=== PATIENT | female | born 1990 | race Caucasian/White ===

== ENCOUNTER 2023-05-31 10:00 | Outpatient (OUT) | payer OTHER, SELFPAY ==
[2023-05-31 12:29] LABS: Free T4 1.12 ng/dL (0.76-1.46)
[2023-05-31 13:12] LABS: Thyroid Stimulating Hormone 6.519 uIU/mL (0.358-3.740)
== END 2023-05-31 10:01 | disposition home or self-care (01) ==
PROVIDERS: PCP Family Medicine; Visit Provider Family Medicine
DX: E03.9 Hypothyroidism, unspecified (principal)
CPT/HCPCS: 36415; 84439; 84443

== ENCOUNTER 2023-10-23 13:40 | Outpatient (OUT) | payer OTHER, SELFPAY ==
--- OUTSIDE RECORDS SUMMARY | 2023-10-23 13:54 | XMS_ITS | CCD ---
Author Organization [facility] Care Team Providers Care Capping Machine Operator Name Role Phone BEULAH YARBROUGH Attending Unavailable Xochilt Westfall Primary Care Unavailable Madiha Barreto Attending Unavailable Malou, Xochilt Coronel Primary Care Unavailable BEULAH YARBROUGH Attending Unavailable Malou, Xochilt Coronel Primary Care Unavailable Malou, Xochilt Coronel Primary Care Unavailable JAIME LOGAN Attending Unavailable Xochilt Westfall Consulting Unavailable SUAD CARPENTER Attending UnavailXOCHILT Bernstein Primary Care Un available BALDOMERO CHRISTIANULMALEK Admitting Unavailable PHUEHGera ABDULCELIAEK Attending Unavailable XOCHILT GARAY Primary Care Un available AGUSTINA GAN Consulting Unavailable ROBERT, DR FERNANDEZ Admitting Unavailable ALICIA, DR KITA Vidal Primary Care Unavailable ROBERT, DR FERNANDEZ Attending Unavailable ROBERT, DR FERNANDEZ Consulting Unavailable Ed Dow Consulting Unavailable ALICIA, DR KITA Vidal Admitting Unavailable VARGAS, DR KITA Vidal Attending Unavailable ALICIA, DR KITA Vidal Admitting Unavailable VARGAS, DR KITA Vidal Attending Unavailable VARGAS, DR KITA Vidal Consulting Unavailable ALICIA, DR KITA Vidal Primary Care Unavailable Kita Vargas Unavailable Allergies Allergy Classification Reported Allergen(s) Allergy Type Date of Onset Reaction(s) Facility Doxycycline (1 source) Doxycycline Drug Allergy [facility] [place] [facility] Opioid Agonists (1 source) Codeine Drug Allergy 06-19-19 [facility] Penicillins (antibiotic) (1 source) Amoxicillin Drug Allergy 03-28-20 [facility] (2 sources) Amoxicillin; Translations: [amoxicillin] Drug Allergy [facility] (2 sources) Codeine; Translations: [codeine] Drug Allergy [facility] (1 source) Codeine Drug Allergy Unknown NONO Other (1 source) Pseudoephedrine Drug Allergy 05-25-20 Unknown NONO Other (1 source) Allergies Reconciled Propensity to adverse reactions Unknown NONO Other Medications Current Medications Medication Drug Class(es) Dates Sig (Normalized) Sig (Original) [id number] actuat albuterol 0.09 mg/actuat metered dose inhaler (1 source) beta2-Adrenergic Agonist Start: 07-11-2023 take 2 puff(s) by inhalation every four hours as needed Albuterol Sulfate HFA 108 (90 Base) MCG/ACT 2 puff Inhalation every 4 hrs prn prefers Proair Jun, Active 120 actuat fluticasone propionate 0.11 mg/actuat metered dose inhaler (1 source) Corticosteroid take 2 puff(s) by inhalation twice daily Fluticasone Propionate HFA 110 MCG/ACT 2 puffs Inhalation Twice a day for 30 days Active levothyroxine sodium 0.175 mg oral tablet (2 sources) l-Thyroxine take 1 tablet by mouth once daily in the morning Levothyroxine Sodium 200 MCG 1 tablet in the morning on an empty stomach Orally Once a day for 30 days Active take 1 tablet by bernardo th once daily in the morning Levothyroxine Sodium 175 MCG take 1 tabl et by mouth every morning ON AN EMPTY STOMACH for 30 Active lisdexamfetamine dimesylate 30 mg oral capsule (1 source) Central Nervous System Stimulant Start: 07-11-2023 take 1 capsule by mouth every twenty-four hours Vyvanse 30 MG 1 capsule in the morning Orally Once a day for 30 days Jun, Active norethindrone 0.35 mg oral tablet (1 source) take 1 tablet by mouth every twenty-four hours Norethindrone 0.35 MG 1 tablet Orally Once a day Active Problems Active Problems Problem Classification Problem Date Documented Date Episodic/Chronic Asthma (2 sources) Exacerbation of moderate persistent asthma; Translations: [Moderate persistent asthma with (acute) exacerbation] Chronic Attention-deficit, conduct, and disruptive behavior disorders (1 source) Adult attention deficit hyperactivity disorder ; Translations: [Attention-deficit hyperactivity disorder, unspecified type] Chronic Attention-deficit, conduct, and disruptive behavior disorders (1 source) Attention-deficit hyperactivity disorder, unspecified type Chronic Disorders usually diagnosed in infancy, childhood, or adolescence (1 source) Behavioral and emotional disorder with onset in childhood; Translations: [Other specified behavioral and emotional disorders with onset usually occurring in childhood and adolescence] Chronic E Codes: Fall (1 source) Fall (on) (from) unspecified stairs and steps, initial encounter; Translations: [FALL ON FROM UNS STAIRS STEPS INIT] Onset: 11-12-2020 Episodic Immunizations and screening for infectious disease (1 source) Sexually transmitted infectious disease; Translations: [Encounter for screening for infections with a predominantly sexual mode of transmission] Episodic Menstrual disorders (1 source) Dysmenorrhea; Translations: [Dysmenorrhea, unspecified] Chronic Miscellaneous mental health disorders (2 sources) Binge eating disorder; Translations: [Binge eating disorder] Chronic Mood disorders (2 sources) Major depressive disorder, single episode, severe without psychotic features; Translations: [Major depressive disorder, single episode, severe without psychotic features] Onset: 09-29-2018 Chronic Mood disorders (1 source) Major depressive disorder, single episode, unspecified; Translations: [Major depressive disorder, single episode, unspecified] Onset: 09-28-2018 Other aftercare (1 source) Other continuous churn buttermaker (current) drug therapy; Translations: [OTH JAIL CURRENT DRUG THERAPY] Onset: 11-12-2020 Episodic Other circulatory disease (1 source) Elevated blood-pressure reading, without diagnosis of hypertension; Translations: [Elevated blood-pressure reading, without diagnosis of hypertension] Onset: 09-28-2018 Episodic Other complications of (3 sources) High risk ; Translations: [Supervision of high risk , unspecified, second trimester] Episodic Other complications of (1 source) Endocrine, nutritional and metabolic disease complicating , childbirth and puerperium; Translations: [Endocrine, nutritional and metabolic diseases complicating , first trimester] Episodic Other complications of (1 source) Endocrine, nutritional and metabolic diseases complicating , second trimester; Translations: [Endo, nutritional and metab diseases comp preg, second tri] Episodic Other complications of (1 source) Supervision of with other poor reproductive or obstetric history, first trimester; Translations: [Suprvsn of preg w poor reprodctv or obstet hx, first tri] Episodic Other complications of (1 source) Supervision of with history of ectopic , first trimester; Translations: [Suprvsn of preg w history of ect or molar preg, first tri] Episodic Other complications of (1 source) Supervision of high risk with poor obstetric history; Translations: [Supervision of with other poor reproductive or obstetric history, unspecified trimester] Episodic Other connective tissue disease (1 source) Spasm; Translations: [Other muscle spasm] Episodic Other female genital disorders (1 source) Other specified conditions associated with female genital organs and menstrual cycle; Translations: [Oth cond assoc w female genital organs and menstrual cycle] Episodic Other injuries and conditions due to external causes (3 sources) Unspecified injury of left ankle, initial encounter; Translations: [UNSPECIFIED INJURY LT ANKLE INITIAL] Onset: 11-10-2020 Episodic Other injuries and conditions due to external causes (1 source) History of fall; Translations: [History of falling] Episodic Other lower respiratory disease (1 source) Chronic cough; Translations: [Chronic cough] Episodic Other nutritional; endocrine; and metabolic disorders (1 source) Obese class I; Translations: [Body mass index (BMI) 34.0-34.9, adult] Chronic Other nutritional; endocrine; and metabolic disorders (1 source) Obese class II; Translations: [Body mass index (BMI) 37.0-37.9, adult] Chronic Other nutritional; endocrine; and metabolic disorders (1 source) Body mass index 40+ - severely obese; Translations: [Body mass index (BMI) 40.0-44.9, adult] Chronic Other nutritional; endocrine; and metabolic disorders (1 source) Localized adiposity; Translations: [Localized adiposity] Chronic Other nutritional; endocrine; and metabolic disorders (1 source) Overweight; Translations: [Overweight] Episodic Other and delivery including normal (2 sources) state of fetus, 1st trimester; Translations: [Encounter for supervision of normal , unspecified, first trimester] Episodic Other screening for suspected conditions (not mental disorders or infectious disease) (2 sources) Other specified abnormal findings of blood chemistry; Translations: [Urine test negative] Onset: 09-28-2018 Episodic Other upper respiratory disease (1 source) Nasal congestion; Translations: [Nasal congestion] Episodic Residual codes; unclassified (1 source) History of clinical finding in subject; Translations: [Personal history of other medical treatment] Episodic Residual codes; unclassified (1 source) Complication occurring during ; Translations: [Personal history of other complications of , childbirth and the puerperium] Episodic Sprains and strains (1 source) Sprain of unspecified ligament of left ankle, initial encounter; Translations: [SPRAIN UNS LIGAMENT LT ANKLE INIT] Onset: 11-12-2020 Episodic Suicide and intentional self-inflicted injury (1 source) Suicidal ideations; Translations: [Suicidal ideations] Onset: 09-28-2018 Episodic Superficial injury; contusion (1 source) Contusion of left foot, initial encounter; Translations: [CONTUSION LEFT FOOT INITIAL ENC] Onset: 11-12-2020 Episodic Thyroid disorders (8 sources) Hypothyroidism, unspecified; Translations: [Hypothyroidism] Onset: 05-06-2020 Chronic Past or Other Problems Problem Classification Problem Date Documented Date Episodic/Chronic Cardiac dysrhythmias (2 sources) Tachycardia; Translations: [Tachycardia, unspecified] Resolved: 09-20-2016 Episodic Hypertension complicating ; childbirth and the puerperium (1 source) Gestational [-induced] hypertension without significant proteinuria, second trimester; Translations: [Gestational [-induced] hypertension without significant proteinuria, second trimester] Resolved: 09-20-2016 Episodic Miscellaneous mental health disorders (1 source) depression; Translations: [ depression] Resolved: 06-23-2017 Episodic Other aftercare (1 source) Surgical follow-up; Translations: [Surgery follow-up examination] Onset: 01-15-2010 Episodic Other complications of (1 source) Endocrine, nutritional and metabolic diseases complicating , third trimester; Translations: [Endo, nutritional and metab diseases comp preg, third tri] Resolved: 09-20-2016 Episodic Residual codes; unclassified (1 source) History of uterine scar from previous surgery; Translations: [History of uterine scar from previous surgery] Resolved: 06-23-2017 Episodic Residual codes; unclassified (1 source) Postprocedural state finding; Translations: [Other specified postprocedural states] Resolved: 06-23-2017 Episodic Results Test Name Value Interpretation Reference Range Facility HCG,Urineon 09-16-2021 Beta HCG ( test) Ql (U) Negative Normal [facility] Comment on above: Result Comment: PERF ORMED BY: [place] [address] PATHOLOGIST CANE FLUME WATCHER JUAN GRAY M.D. Performed By: #### U HCG #### [facility] [address] [place] [address] [facility] SARS-CoV-2 (COVID-19) RNA ISMAEL+probe Ql (Unsp spec) Negative Normal Negative [facility] Comment on above: Order Comment: Healt hcare Worker?: N Result Comment: Testing for SARS-CoV-2 by RT-PCR This test was developed and its performance characteristics determined by [employer] and validated at the [facility]. This test has not been FDA cleared or approved. This test has been authorized by FDA under an Emergency Use Authorization (EUA). This test has been validated in accordance with the FDA's Guidance Document (Policy for Diagnostics Testing in Laboratories Certified to Perform High Complexity Testing under CLIA prior to Emergency Use Authorization for Coronavirus Disease-2019 during the Public Health Emergency) issued on September 19, 2019. This test is only authorized for the duration of time the declaration that circumstances exist justifying the authorization of the emergency use of in vitro diagnostic tests for detection of SARS-CoV-2 virus and/or diagnosis of COVID-19 infection under section 564(b)(1) of the Act, 21 U.S.C. 360bbb-3(b)(1), unless the authorization is terminated or revoked sooner. PERFORMED BY: [place] [address] PATHOLOGIST CANE FLUME WATCHER JUAN GRAY M.D. Performed By: #### C OVID 19 [facility] #### [place] [id number] [facility] XR ANKLE LT MIN 3 Von 2020 XR ANKLE LT MIN 3 V EXAM: XR ANKLE LT IL N 3 V, XR FOOT LT MIN 3 VIEWS HISTORY: Pain COMPARISON: None. TECHNIQUE: 3 views of the left foot, 3 views of the left ankle are performed. FINDINGS: There is soft tissue swelling along the lateral aspect of the ankle and along the dorsum of the foot. No acute fracture is seen. The ankle mortise is preserved. IMPRESSION: Soft tissue injury. No acute bony abnormality. Electronically authenticated by: ED DOW Date: 2020-11-10 22:50 Normal [facility] FREE T4on 05-06-2020 Free T4 [Mass/Vol] 1.70 ng/dL Normal 0.78-2.[address] [facility] Comment on above: Performed By: #### F T4 #### [facility] [address] [address] Zahira Caceres TSHon 05-06-2020 TSH 0.028 uIU/mL Critically low 0.470-4.680 [facility] Comment on above: Performed By: #### T SH #### [facility] [address] [place] [address] Zahira Nicki TSH RANGE SEE BELOW Normal [facility] Comment on above: Result Comment: <0.3 4 UIU/ml HYPERTHYROID 0.34-5.60 UIU/ml EUTHYROID >5.60 UIU/ml HYPOTHYROID Performed By: #### T SH #### [facility] [address] [address] Zahira Caceres CBC with Diffon 09-30-2018 Abs. Basophil 0.00 k/uL Normal 0.0-0.2 [facility] Comment on above: Performed By: #### C DP, FT4, LIPR, TSH #### [facility] [address] [place], [place] [id number] Chairman: Kojo Chiu MD Abs.Neutrophil (Seg) 2.90 k/uL Normal 1.3-9.1 [facility] Comment on above: Performed By: #### C DP, FT4, LIPR, TSH #### [facility] [address] [place], [place] [id number] Chairman: Kojo Chiu MD Basophils/100 WBC (Bld) 1 % Normal 0-2 [facility] Comment on above: Performed By: #### C DP, FT4, LIPR, TSH #### [facility] [address] [facility] [place] [address] Chairman: Kojo Chiu MD Eosinophils #/vol (Bld) 0.50 10*3/uL High 0.0-0.4 [facility] Comment on above: Performed By: #### C DP, FT4, LIPR, TSH #### [facility] [address] [facility] [place] [address] Chairman: Kojo Chiu MD Eosinophils/100 WBC (Bld) 8 % High 0-4 [facility] Comment on above: Performed By: #### C DP, FT4, LIPR, TSH #### [facility] [address] [facility] [place] [address] Chairman: Kojo Chiu MD Erythrocyte distribution width Ratio (RBC) 12.4 % Normal 11.5-14.9 [facility] Comment on above: Performed By: #### C DP, FT4, LIPR, TSH #### [facility] [place] [address] Chairman: Kojo Chiu MD Hematocrit Volume Fraction (Bld) 40.5 % Normal 36-46 [facility] Comment on above: Performed By: #### C DP, FT4, LIPR, TSH #### [facility] [place] [address] Chairman: Kojo Chiu MD Hemoglobin mass conc (Bld) 13.9 g/dL Normal 12.0-16.0 [facility] Comment on above: Performed By: #### C DP, FT4, LIPR, TSH #### [facility] [address] [facility] [place] [address] Chairman: Kojo Chiu MD Lymphocytes #/vol (Bld) 2.00 10*3/uL Normal 1.0-4.8 [facility] Comment on above: Performed By: #### C DP, FT4, LIPR, TSH #### [facility] [address] [facility] [place] [address] Chairman: Kojo Chiu MD Lymphocytes/100 WBC (Bld) 34 % Normal 24-44 [facility] Comment on above: Performed By: #### C DP, FT4, LIPR, TSH #### [facility] [address] [facility] [place] [address] Chairman: Kojo Chiu MD MCH Entitic mass (RBC) 30.8 pg Normal 26-34 [facility] Comment on above: Performed By: #### C DP, FT4, LIPR, TSH #### [facility] [address] [place] [address]. [place] [address] Chairman: Kojo Chiu MD MCHC mass conc (RBC) 34.2 g/dL Normal 31-37 [facility] Comment on above: Performed By: #### C DP, FT4, LIPR, TSH #### [facility] [place] [address] Chairman: Kojo Chiu MD MCV Entitic volume (RBC) 89.9 fL Normal 80-100 [facility] Comment on above: Performed By: #### C DP, FT4, LIPR, TSH #### [facility] [place] [address] Chairman: Kojo Chiu MD Monocytes #/vol (Bld) 0.40 10*3/uL Normal 0.1-1.3 [facility] Comment on above: Performed By: #### C DP, FT4, LIPR, TSH #### [facility] [place] [address] Chairman: Kojo Chiu MD Monocytes/100 WBC (Bld) 7 % Normal 1-7 [facility] Comment on above: Performed By: #### C DP, FT4, LIPR, TSH #### [facility] [address] [facility] [place] [address] Chairman: Kojo Chiu MD Neutrophil (Seg) 50 % Normal 36-66 [facility] Comment on above: Performed By: #### C DP, FT4, LIPR, TSH #### [facility] [address] [facility] [place] [address] Chairman: Kojo Chiu MD Platelet mean volume Entitic volume (Bld) 8.8 fL Normal 6.0-12.0 [facility] Comment on above: Performed By: #### C DP, FT4, LIPR, TSH #### [facility] [place] [address] Chairman: Kojo Chiu MD Platelets #/vol (Bld) 289 10*3/uL Normal 150-450 [facility] Comment on above: Performed By: #### C DP, FT4, LIPR, TSH #### [facility] [address] [facility] [place] [address] Chairman: Kojo Chiu MD RBC #/vol (Bld) 4.50 10*6/uL Normal 4.0-5.2 [facility] Comment on above: Performed By: #### C DP, FT4, LIPR, TSH #### [facility] [address] [facility] [place] [address] Chairman: Kojo Chiu MD WBC #/vol (Bld) 5.8 10*3/uL Normal 3.5-11.0 [facility] Comment on above: Performed By: #### C DP, FT4, LIPR, TSH #### [facility] [address] [facility] [place] [address] Chairman: Kojo Chiu MD Abs.Imm.Granulocyte NOT REPORTED Normal 0.00-0.30 [facility] Comment on above: Performed By: #### C DP, FT4, LIPR, TSH #### [facility] [address] [facility] [place] [address] Chairman: Kojo Chiu MD Auto Diff Performed NOT REPORTED Normal [facility] Comment on above: Performed By: #### C DP, FT4, LIPR, TSH #### [facility] [place] [address] Chairman: Kojo Chiu MD Immature granulocytes #/vol (Bld) NOT REPORTED Normal 0 [facility] Comment on above: Performed By: #### C DP, FT4, LIPR, TSH #### [facility] [address] [place] [address]. [place] [address] Chairman: Kojo Chiu MD NRBC Automated NOT REPORTED Normal [facility] Comment on above: Performed By: #### C DP, FT4, LIPR, TSH #### [facility] [place] [address] Chairman: Kojo Chiu MD Platelets #/vol (Bld) NOT REPORTED Normal [facility] Comment on above: Performed By: #### C DP, FT4, LIPR, TSH #### [facility] [address] [facility] [place] [address] Chairman: Kojo Chiu MD RBC morphology finding Nom (Bld) NOT REPORTED Normal [facility] Comment on above: Performed By: #### C DP, FT4, LIPR, TSH #### [facility] [address] [facility] [place] [address] Chairman: Kojo Chiu MD WBC Morphology NOT REPORTED Normal [facility] Comment on above: Performed By: #### C DP, FT4, LIPR, TSH #### [facility] [address] [facility] [place] [address] Chairman: Kojo Chiu MD Lipid Profileon 09-30-2018 Cholesterol in HDL mass conc 45 mg/dL Normal >40 [facility] Comment on above: Result Comment: HDL Guidelines: <40 Undesirable 40-59 Borderline >59 Desirable Performed By: #### C DP, FT4, LIPR, TSH #### [facility] [address] [facility] [place] [address] Chairman: Kojo Chiu MD Cholesterol in LDL mass conc 134 mg/dL High 0-130 [facility] Comment on above: Result Comment: LDL Guidelines: <100 Desirable 100-129 Near to/above Desirable 130-159 Borderline >159 Undesirable Direct (measured) LDL and calculated LDL are not interchangeable tests. Performed By: #### C DP, FT4, LIPR, TSH #### [facility] [address] [facility] [place] [address] Chairman: Kojo Chiu MD Cholesterol mass conc 205 mg/dL High <200 [facility] Comment on above: Result Comment: Cholesterol Guidelines: <200 Desirable 200-240 Borderline >240 Undesirable Performed By: #### C DP, FT4, LIPR, TSH #### [facility] [address] [facility] [place] [address] Chairman: Kojo Chiu MD Cholesterol.total/Ch olesterol in HDL mass ratio 4.6 {ratio} Normal <5 [facility] Comment on above: Performed By: #### C DP, FT4, LIPR, TSH #### [facility] [address] [facility] [place] [address] Chairman: Kojo Chiu MD Triglyceride mass conc 131 mg/dL Normal <150 [facility] Comment on above: Result Comment: Triglyceride Guidelines: <150 Desirable 150-199 Borderline 200-499 High >499 Very high Based on AHA Guidelines for fasting triglyceride, March 2012. Performed By: #### C DP, FT4, LIPR, TSH #### [facility] [address] [facility] [place] [address] Chairman: Kojo Chiu MD Cholesterol in VLDL mass conc NOT REPORTED Normal 07-18 [facility] Comment on above: Performed By: #### C DP, FT4, LIPR, TSH #### [facility] [address] [facility] [place] [address] Chairman: Kojo Chiu MD Thyroid Stim. Horm.on 2018 Thyrotropin Qn 0.04 m[IU]/L Low 0.30-5.00 [facility] Comment on above: Performed By: #### C DP, FT4, LIPR, TSH #### [facility] [address] [facility] [place] [address] Chairman: Kojo Chiu MD Thyroxine, Freeon 09-30-2018 Thyroxine, Free 1.74 ng/dL High 0.93-1.70 [facility] Comment on above: Performed By: #### C DP, FT4, LIPR, TSH #### [facility] [address] [facility] [place] [address] Chairman: Kojo Chiu MD XR ELBOW LEFT (MIN 3 VIEWS)o n 09-30-2018 XR ELBOW LEFT (MIN 3 VIEWS) EXAMINATION: 3 XRAY VIEWS OF THE LEFT ELBOW 09/30/2018 9:34 pm COMPARISON: None. HISTORY: ORDERING SYSTEM PROVIDED HISTORY: trauma to left elbow from fall TECHNOLOGIST PROVIDED HISTORY: trauma to left elbow from fall Ordering Physician Provided Reason for Exam: S/p fall pain posterior elbow Acuity: Acute Type of Exam: Initial Mechanism of Injury: S/p fall pain posterior elbow FINDINGS: There is no acute fracture or suspect osseous lesion. Alignment is normal. No soft tissue abnormality or joint effusion is seen. IMPRESSION: No acute osseous abnormality of the left elbow. Interpreted by: Lang Francis MD Signed by: Lang Francis MD 09/30/18 Final result Normal [facility] APTTon 09-29-2018 aPTT Coag time (Bld) 27.4 s Normal 23.2-34.4 [facility] Comment on above: Performed By: #### C DP, TROPI, PTT, CMPX, SALI, PT #### [facility] [address] [place] [address] Dr. [place], [place] [address] Chairman: Aryan Cleveland MD Acetaminophenon 09-29-2018 Acetaminophen mass conc <5 Low 10-30 [facility] Comment on above: Performed By: #### A LCB, ACET #### [address] [place], [place] [address] Chairman: Aryan Cleveland MD CBC with Diffon 09-29-2018 Abs. Basophil 0.09 k/uL Normal 0.00-0.20 [facility] Comment on above: Performed By: #### C DP, TROPI, PTT, CMPX, SALI, PT #### [address] [place], [place] [address] Chairman: Aryan Cleveland MD Abs.Imm.Granulocyte <0.03 Normal 0.00-0.30 [facility] Comment on above: Performed By: #### C DP, TROPI, PTT, CMPX, SALI, PT #### [address] [place], [place] [address] Chairman: Aryan Cleveland MD Abs.Neutrophil (Seg) 5.50 k/uL Normal 1.50-8.10 [facility] Comment on above: Performed By: #### C DP, TROPI, PTT, CMPX, SALI, PT #### [address] [place], [facility]83 Chairman: Aryan Cleveland MD Basophils/100 WBC (Bld) 1 % Normal 0-2 [facility] Comment on above: Performed By: #### C DP, TROPI, PTT, CMPX, SALI, PT #### [address] [place], [place] [id number] Chairman: Aryan Cleveland MD Eosinophils #/vol (Bld) 0.60 10*3/uL High 0.00-0.44 [facility] Comment on above: Performed By: #### C DP, TROPI, PTT, CMPX, SALI, PT #### [address] [place], [place] [address] Chairman: Aryan Cleveland MD Eosinophils/100 WBC (Bld) 6 % High 1-4 [facility] Comment on above: Performed By: #### C DP, TROPI, PTT, CMPX, SALI, PT #### [address] [place], [facility]83 Chairman: Aryan Cleveland MD Erythrocyte distribution width Ratio (RBC) 11.9 % Normal 11.8-14.4 [facility] Comment on above: Performed By: #### C DP, TROPI, PTT, CMPX, SALI, PT #### [address] [place], [facility]83 Chairman: Aryan Cleveland MD Hematocrit Volume Fraction (Bld) 38.6 % Normal 36.3-47.1 [facility] Comment on above: Performed By: #### C DP, TROPI, PTT, CMPX, SALI, PT #### [address] [place], [facility]83 Chairman: Aryan Cleveland MD Hemoglobin mass conc (Bld) 12.5 g/dL Normal 11.9-15.1 [facility] Comment on above: Performed By: #### C DP, TROPI, PTT, CMPX, SALI, PT #### [address] [place], [place] [id number] Chairman: Aryan Cleveland MD Immature granulocytes #/vol (Bld) 0 % Normal 0 [facility] Comment on above: Performed By: #### C DP, TROPI, PTT, CMPX, SALI, PT #### [facility] [address] [place], [place] [id number] Chairman: Aryan Cleveland MD Lymphocytes #/vol (Bld) 3.61 10*3/uL Normal 1.10-3.70 [facility] Comment on above: Performed By: #### C DP, TROPI, PTT, CMPX, SALI, PT #### [facility] [address] [place] [address] Chairman: Aryan Cleveland MD Lymphocytes/100 WBC (Bld) 34 % Normal 24-43 [facility] Comment on above: Performed By: #### C DP, TROPI, PTT, CMPX, SALI, PT #### [address] [place], [place] [address] Chairman: Aryan Cleveland MD MCH Entitic mass (RBC) 29.7 pg Normal 25.2-33.5 [facility] Comment on above: Performed By: #### C DP, TROPI, PTT, CMPX, SALI, PT #### [facility] [address] [place], [place] [id number] Chairman: Aryan Cleveland MD MCHC mass conc (RBC) 32.4 g/dL Normal 28.4-34.8 [facility] Comment on above: Performed By: #### C DP, TROPI, PTT, CMPX, SALI, PT #### [facility] [address] [place], [place] [id number] Chairman: Aryan Cleveland MD MCV Entitic volume (RBC) 91.7 fL Normal 82.6-102.9 [facility] Comment on above: Performed By: #### C DP, TROPI, PTT, CMPX, SALI, PT #### [facility] [address] [place], [place] [id number] Chairman: Aryan Cleveland MD Monocytes #/vol (Bld) 0.85 10*3/uL Normal 0.10-1.20 [facility] Comment on above: Performed By: #### C DP, TROPI, PTT, CMPX, SALI, PT #### [facility] [address] [place], [place] [phone] Chairman: Aryan Cleveland MD Monocytes/100 WBC (Bld) 8 % Normal 3-12 [facility] Comment on above: Performed By: #### C DP, TROPI, PTT, CMPX, SALI, PT #### [facility] [address] [place], [facility]83 Chairman: Aryan Cleveland MD Neutrophil (Seg) 51 % Normal 36-65 [facility] Comment on above: Performed By: #### C DP, TROPI, PTT, CMPX, SALI, PT #### [facility] [address] [place], [facility]83 Chairman: Aryan Cleveland MD NRBC Automated 0.0 per 100 WBC Normal 0.0 [facility] Comment on above: Performed By: #### C DP, TROPI, PTT, CMPX, SALI, PT #### [address] [place], [place] [id number] Chairman: Aryan Cleveland MD Platelet mean volume Entitic volume (Bld) 10.6 fL Normal 8.1-13.5 [facility] Comment on above: Performed By: #### C DP, TROPI, PTT, CMPX, SALI, PT #### [facility] [address] [place], [place] [id number] Chairman: Aryan Cleveland MD Platelets #/vol (Bld) 314 10*3/uL Normal 138-453 [facility] Comment on above: Performed By: #### C DP, TROPI, PTT, CMPX, SALI, PT #### [address] [place] [address] Chairman: Aryan Cleveland MD RBC #/vol (Bld) 4.21 10*6/uL Normal 3.95-5.11 [facility] Comment on above: Performed By: #### C DP, TROPI, PTT, CMPX, SALI, PT #### [address] [place] [address] Chairman: Aryan Cleveland MD WBC #/vol (Bld) 10.7 10*3/uL Normal 3.5-11.3 [facility] Comment on above: Performed By: #### C DP, TROPI, PTT, CMPX, SALI, PT #### [address] [place], [facility]83 Chairman: Aryan Cleveland MD Auto Diff Performed NOT REPORTED Normal [facility] Comment on above: Performed By: #### C DP, TROPI, PTT, CMPX, SALI, PT #### [address] [place], [facility]83 Chairman: Aryan Cleveland MD Platelets #/vol (Bld) NOT REPORTED Normal [facility] Comment on above: Performed By: #### C DP, TROPI, PTT, CMPX, SALI, PT #### [address] [place], [facility]83 Chairman: Aryan Cleveland MD RBC morphology finding Nom (Bld) NOT REPORTED Normal [facility] Comment on above: Performed By: #### C DP, TROPI, PTT, CMPX, SALI, PT #### [address] [place], [facility]83 Chairman: Aryan Cleveland MD WBC Morphology NOT REPORTED Normal [facility] Comment on above: Performed By: #### C DP, TROPI, PTT, CMPX, SALI, PT #### [address] [place], [place] [id number] Chairman: Aryan Cleveland MD Comp Metabolic Pr/rfx MGon 0 09-29-2018 (cont.) Normal [facility] Comment on above: Result Comment: Aver age GFR for 20-29 years old: 116 mL/min/1.73sq m Chronic Kidney Disease: <60 mL/min/1.73sq m Kidney failure: <15 mL/min/1.73sq m eGFR calculated using average adult body mass. Additional eGFR calculator available at: http://www.NOBOT/multiple_crcl_2012.htm Performed By: #### C DP, TROPI, PTT, CMPX, SALI, PT #### [facility] [address] [place] [address] Chairman: Aryan Cleveland MD Albumin mass conc 3.7 g/dL Normal 3.5-5.2 [facility] Comment on above: Performed By: #### C DP, TROPI, PTT, CMPX, SALI, PT #### [facility] [address] [place] [address] Chairman: Aryan Cleveland MD Albumin/Globulin mass ratio 1.1 {ratio} Normal 1.0-2.5 [facility] Comment on above: Performed By: #### C DP, TROPI, PTT, CMPX, SALI, PT #### [address] [place] [address] Chairman: Aryan Cleveland MD Alkaline Phos 57 U/L Normal 35-104 [facility] Comment on above: Performed By: #### C DP, TROPI, PTT, CMPX, SALI, PT #### [facility] [address] [place] [address] Chairman: Aryan Cleveland MD ALT enzyme act/vol 22 U/L Normal 5-33 [facility] Comment on above: Performed By: #### C DP, TROPI, PTT, CMPX, SALI, PT #### [facility] [address] [place] [id number] Chairman: Aryan Cleveland MD Anion gap molar conc 12 mmol/L Normal 9-17 [facility] Comment on above: Performed By: #### C DP, TROPI, PTT, CMPX, SALI, PT #### [facility] [address] [place], [place] [id number] Chairman: Aryan Cleveland MD AST enzyme act/vol 12 U/L Normal <32 [facility] Comment on above: Performed By: #### C DP, TROPI, PTT, CMPX, SALI, PT #### [facility] [address] [place], [place] [phone] Chairman: Aryan Cleveland MD Bilirubin Ql (U) 0.36 mg/dL Normal 0.3-1.2 [facility] Comment on above: Performed By: #### C DP, TROPI, PTT, CMPX, SALI, PT #### [facility] [address] [place], [place] [phone] Chairman: Aryan Cleveland MD BUN/CRE Ratio 11 Normal 9-20 [facility] Comment on above: Performed By: #### C DP, TROPI, PTT, CMPX, SALI, PT #### [facility] [address] [place], [place] [id number] Chairman: Aryan Cleveland MD Calcium mass conc 9.0 mg/dL Normal 8.6-10.4 [facility] Comment on above: Performed By: #### C DP, TROPI, PTT, CMPX, SALI, PT #### [facility] [address] [place], [place] [phone] Chairman: Aryan Cleveland MD Chloride molar conc 102 mmol/L Normal 98-107 [facility] Comment on above: Performed By: #### C DP, TROPI, PTT, CMPX, SALI, PT #### [facility] [address] [place], [place] [id number] Chairman: Aryan Cleveland MD CO2 molar conc 25 mmol/L Normal 20-31 [facility] Comment on above: Performed By: #### C DP, TROPI, PTT, CMPX, SALI, PT #### [facility] [address] [place], [place] [phone] Chairman: Aryan Cleveland MD Creatinine mass conc 0.74 mg/dL Normal 0.50-0.90 [facility] Comment on above: Performed By: #### C DP, TROPI, PTT, CMPX, SALI, PT #### [facility] [address] [place], [place] [phone] Chairman: Aryan Cleveland MD GFR, Amer >60 Normal >60 [facility] Comment on above: Performed By: #### C DP, TROPI, PTT, CMPX, SALI, PT #### [facility] [address] [place], [place] [id number] Chairman: Aryan Cleveland MD GFR,non Amer >60 Normal >60 [facility] Comment on above: Performed By: #### C DP, TROPI, PTT, CMPX, SALI, PT #### [facility] [address] [place], [place] [id number] Chairman: Aryan Cleveland MD Glucose mass conc 87 mg/dL Normal 70-99 [facility] Comment on above: Performed By: #### C DP, TROPI, PTT, CMPX, SALI, PT #### [facility] [address] [place], [place] [phone] Chairman: Aryan Cleveland MD Potassium molar conc 3.7 mmol/L Normal 3.7-5.3 [facility] Comment on above: Performed By: #### C DP, TROPI, PTT, CMPX, SALI, PT #### [facility] [address] [place], [place] [phone] Chairman: Aryan Cleveland MD Protein mass conc 7.0 g/dL Normal 6.4-8.3 [facility] Comment on above: Performed By: #### C DP, TROPI, PTT, CMPX, SALI, PT #### [facility] [address] [place] [address] Chairman: Aryan Cleveland MD Sodium molar conc 139 mmol/L Normal 135-144 [facility] Comment on above: Performed By: #### C DP, TROPI, PTT, CMPX, SALI, PT #### [facility] [address] [place], [place] [phone] Chairman: Aryan Cleveland MD Staging: Normal [facility] Comment on above: Result Comment: Stag e 1: Some kidney damage normal GFR Stage 2: Mild kidney damage GFR 60-89 Stage 3: Moderate kidney damage GFR 30-59 Stage 4: Severe kidney damage GFR 15-29 Stage 5: Severe kidney damage GFR <15 ESRD - chronic treatment by dialysis or transplant Performed By: #### C DP, TROPI, PTT, CMPX, SALI, PT #### [address] [place], [place] [phone] Chairman: Aryan Cleveland MD Urea nitrogen mass conc 8 mg/dL Normal 6-20 [facility] Comment on above: Performed By: #### C DP, TROPI, PTT, CMPX, SALI, PT #### [address] [place] [address] Chairman: Aryan Cleveland MD Drug Scr, Abuse, Uron 2018 Amphetamine(s),Ur Negative Normal NEG [facility] Comment on above: Performed By: #### C DP, TROPI, PTT, CMPX, SALI, PT #### [facility] [address] [place] [address] Chairman: Aryan Cleveland MD Barbiturate(s),Ur Negative Normal NEG [facility] Comment on above: Performed By: #### C DP, TROPI, PTT, CMPX, SALI, PT #### [facility] [address] [place], [place] [phone] Chairman: rAyan Cleveland MD Base excess Calculated molar conc (Bld) Negative Normal [facility] Comment on above: Performed By: #### C DP, TROPI, PTT, CMPX, SALI, PT #### [facility] [address] [place] [address] Chairman: Aryan Cleveland MD Benzodiazepine(s) Positive Abnormal NEG [facility] Comment on above: Performed By: #### C DP, TROPI, PTT, CMPX, SALI, PT #### [address] [place], [place] [phone] Chairman: Aryan Cleveland MD Buprenorphrine, Ur Negative Normal [facility] Comment on above: Performed By: #### C DP, TROPI, PTT, CMPX, SALI, PT #### [facility] [address] [place] [address] Dr. [place], [place] [phone] Chairman: Aryan Cleveland MD Cannabinoid(s),Ur Positive Abnormal NEG [facility] Comment on above: Performed By: #### C DP, TROPI, PTT, CMPX, SALI, PT #### [address] [place], [place] [phone] Chairman: Aryan Cleveland MD Methadone Ql (U) Negative Normal NEG [facility] Comment on above: Performed By: #### C DP, TROPI, PTT, CMPX, SALI, PT #### [facility] [address] [place] [address] Dr. [place], [place] [phone] Chairman: Aryan Cleveland MD Methamphetamine, Ur Negative Normal [facility] Comment on above: Performed By: #### C DP, TROPI, PTT, CMPX, SALI, PT #### [address] [place], [place] [phone] Chairman: Aryan Cleveland MD Opiate(s), Ur Negative Normal NEG [facility] Comment on above: Performed By: #### C DP, TROPI, PTT, CMPX, SALI, PT #### [facility] [address] [place], [place] [phone] Chairman: Aryan Cleveland MD Oxycodone, Urine Negative Normal NEG [facility] Comment on above: Performed By: #### C DP, TROPI, PTT, CMPX, SALI, PT #### [facility] [address] [place] [address] Dr. [place], [place] [phone] Chairman: Aryan Cleveland MD Phencyclidine, Ur Negative Normal NEG [facility] Comment on above: Performed By: #### C DP, TROPI, PTT, CMPX, SALI, PT #### [address] [place], [place] [phone] Chairman: Aryan Cleveland MD Protein mass conc (U) Negative [facility] Comment on above: Performed By: #### C DP, TROPI, PTT, CMPX, SALI, PT #### [address] [place], [place] [id number] Chairman: Aryan Cleveland MD Tricyclic antidepressants Screen Ql (U) Negative [facility] Comment on above: Result Comment: Drug screen results are to be used for medical purposes only. All positive results are unconfirmed. Testing for employment or legal uses should be sent to a reference laboratory for confirmation. Performed By: #### C DP, TROPI, PTT, CMPX, SALI, PT #### [facility] [address] [place] [address] Dr. [place], [place] [phone] Chairman: Aryan Cleveland MD Interpretive Info NOT REPORTED [facility] Comment on above: Performed By: #### C DP, TROPI, PTT, CMPX, SALI, PT #### [address] [place] [address] Chairman: Aryan Cleveland MD MDMA, Urine NOT REPORTED Normal NEG [facility] Comment on above: Performed By: #### C DP, TROPI, PTT, CMPX, SALI, PT #### [facility] [address] [place], [place] [phone] Chairman: Aryan Cleveland MD Ethanol Alcoholon 09-29-2018 Ethanol mass conc mg/dL Normal <10 [facility] Comment on above: Performed By: #### A LCB, ACET #### [facility] [address] [place], [place] [phone] Chairman: Aryan Cleveland MD Ethanol percent <0.010 Normal <0.010 [facility] Comment on above: Result Comment: NOTE : NEW REFERENCE RANGE Performed By: #### A LCB, ACET #### [address] [place], [place] [phone] Chairman: Aryan Cleveland MD HCG, ,Urineon 09-29 HCG.beta subunit ( test) Ql (U) Negative Normal NEG [facility] Comment on above: Result Comment: Spec imens with hCG levels near the threshold of the test (25 mIU/mL) may give a negative or indeterminate result. In such cases, another test should be performed with a new specimen in 48-72 hours. If early is suspected clinically in this setting, correlation with quantitative serum b-hCG level is suggested. [facility] has confirmed the use of plasma for this test. This has not been cleared or approved by the U.S. Food and Drug Administration. The FDA has determined that such clearance is not necessary. Performed By: #### U A, RIVAS, UHCG #### [facility] [address] [place] [address] Chairman: Aryan Cleveland MD PTon 09-29-2018 INR Coag RelTime (PPP) 1.0 {INR} Normal 0.9-1.2 [facility] Comment on above: Performed By: #### C DP, TROPI, PTT, CMPX, SALI, PT #### [facility] [address] [place], [place] [phone] Chairman: Aryan Cleveland MD Prothrombin time (PT) Coag time (PPP) 10.5 s Normal 9.7-12.2 [facility] Comment on above: Performed By: #### C DP, TROPI, PTT, CMPX, SALI, PT #### [facility] [address] [place], [facility]83 Chairman: Aryan Cleveland MD Salicylateon 09-29-2018 Salicylate <1 Low 3-10 [facility] Comment on above: Performed By: #### C DP, TROPI, PTT, CMPX, SALI, PT #### [facility] [address] [place], [facility]83 Chairman: Aryan Cleveland MD Thyroid Stim. Horm.on 2018 Thyrotropin Qn 0.04 m[IU]/L Low 0.30-5.00 [facility] Comment on above: Performed By: #### T SH #### [facility] [address] [facility]83 Chairman: Aryan Cleveland MD Troponinon 09-29-2018 Troponin I.cardiac mass conc ng/mL Normal <0.03 [facility] Comment on above: Result Comment: Trop onin T results cannot be compared to Troponin-I results. Performed By: #### C DP, TROPI, PTT, CMPX, SALI, PT #### [facility] [address] [place], [facility]83 Chairman: Aryan Cleveland MD Troponin I.cardiac mass conc Normal [facility] Comment on above: Result Comment: Refe rence Range: <0.03 Within reference range. 0.03-0.09 Possible myocardial damage. Repeat at appropriate intervals to rule out chronic elevation. >= 0.10 Indicative of myocardial damage. Patients with high levels of Biotin oral intake (i.e >5mg/day) may have falsely decreased Troponin T levels. Samples collected within 8 hours of biotin intake may require additional information for diagnosis. Performed By: #### C DP, TROPI, PTT, CMPX, SALI, PT #### [facility] [address] [place], [place] [phone] Chairman: Aryan Cleveland MD Troponin I.cardiac mass conc NOT REPORTED Normal 0-14 [facility] Comment on above: Performed By: #### C DP, TROPI, PTT, CMPX, SALI, PT #### [facility] [address] [place] [address] Chairman: Aryan Cleveland MD Urinalysis, Routineon 2018 Acetoacetic Acid,Ur Negative Normal [facility] Comment on above: Performed By: #### C DP, TROPI, PTT, CMPX, SALI, PT #### [address] [place] [address] Chairman: Aryan Cleveland MD Bilirubin, SemiQt,Ur Negative Normal [facility] Comment on above: Performed By: #### C DP, TROPI, PTT, CMPX, SALI, PT #### [address] [place] [address] Chairman: Aryan Cleveland MD Color Nom (U) YELLOW Normal [facility] Comment on above: Performed By: #### C DP, TROPI, PTT, CMPX, SALI, PT #### [address] [place], [place] [phone] Chairman: Aryan Cleveland MD Glucose,Semi-qnt,Ur Negative Normal [facility] Comment on above: Performed By: #### C DP, TROPI, PTT, CMPX, SALI, PT #### [address] [place], [place] [phone] Chairman: Aryan Cleveland MD Hemoglobin, Ur Negative Normal [facility] Comment on above: Performed By: #### C DP, TROPI, PTT, CMPX, SALI, PT #### [facility] [address] [place] [address] Chairman: Aryan Cleveland MD Leuckocyte Esterase Negative Normal NEG [facility] Comment on above: Performed By: #### C DP, TROPI, PTT, CMPX, SALI, PT #### [facility] [address] [place] [address] Chairman: Aryan Cleveland MD Nitrite,Ur Negative Normal NEG [facility] Comment on above: Performed By: #### C DP, TROPI, PTT, CMPX, SALI, PT #### [facility] [address] [place], [place] [phone] Chairman: Aryan Cleveland MD PH,Ur 6.5 Normal 5.0-9.0 [facility] Comment on above: Performed By: #### C DP, TROPI, PTT, CMPX, SALI, PT #### [address] [place] [address] Chairman: Aryan Cleveland MD Protein mass conc (U) Negative Normal NEG [facility] Comment on above: Performed By: #### C DP, TROPI, PTT, CMPX, SALI, PT #### [address] [place] [address] Chairman: Aryan Cleveland MD Spec. Lillian,Ur 1.010 Normal 1.010-1.020 [facility] Comment on above: Performed By: #### C DP, TROPI, PTT, CMPX, SALI, PT #### [address] [place], [place] [phone] Chairman: Aryan Cleveland MD Turbidity CLEAR Normal CLEAR [facility] Comment on above: Performed By: #### C DP, TROPI, PTT, CMPX, SALI, PT #### [address] [place], [facility]83 Chairman: Aryan Cleveland MD Urobilinogen,Ur Normal Normal NORM [facility] Comment on above: Performed By: #### C DP, TROPI, PTT, CMPX, SALI, PT #### [facility] [address] [place], [place] [phone] Chairman: Aryan Cleveland MD Comment NOT REPORTED Normal [facility] Comment on above: Performed By: #### C DP, TROPI, PTT, CMPX, SALI, PT #### [facility] [address] [place], [place] [id number] Chairman: Aryan Cleveland MD ED Clinical Summaryon 2018 ED Clinical Summary [address] [address] ED Clinical Summary Person Information Name: Lana Carrillo [facility] Age: 28 Years : 1990 Sex: Female PCP: Malou MCBRIDE, Xochilt Coronel Marital Status: Race: White Ethnicity: Not or Language: [place] Citizen Visit Reason: Ear pain; Ear drainage Acuity: 5 Enc Type: Emergency Med Service: Emergency Medicine Arrival: 09/10/2018 18:52:00 Discharge: 09/10/2018 19:20:00 LOS: 000 00:28 Checkin: 09/10/2018 18:52:00 Checkout: 09/10/2018 19:20:00 Dispo Type: Home or Self Care Address: [address] [place], [place] [id number] Provider Notes: Diagnosis: 1:Right otitis media; 2:Right otitis externa Problems No Problems Documented Smoking Status: Smoking Status Never (less than 100 in lifetime) Functional Status: Sensory Deficits: History of Falls: Mobility Assistance Prior to Admission: ADLs: Current Level of Assistance for Self-Care/Mobility: Cognitive Status: Allergies amoxicillin (Swelling) codeine (Swelling) Laboratory or Other Results This Visit (last charted value for your 09/10/2018 visit) No Laboratory or Other Results This Visit Measurements: Height: Weight: 90.7 kg Blood Pressure: /81 mmHg BMI: Procedures No Procedures Documented Immunizations No Immunizations Documented This Visit Final Med List: New Medications [facility], [address] [place] [id number], [phone] ciprofloxacin-dexameth asone otic (Ciprodex 0.3%-0.1% otic suspension) 4 Drops Both ears 2 times a day for 7 Days. right ear, not both. Refills: 0. Last Dose: ___ doxycycline (doxycycline hyclate 100 mg oral capsule) 1 Capsules Oral (given by mouth) 2 times a day for 10 Days. Refills: 0. Last Dose: ___ Medications that have not changed Other Medications celecoxib (CeleBREX 200 mg oral capsule) 1 Capsules Oral (given by mouth) every day as needed as needed for pain for 10 Days. Refills: 0. Last Dose: ___ levothyroxine (levothyroxine 200 mcg (0.2 mg) oral tablet) 1 Tabs Oral (given by mouth) every day. Last Dose: ___ norethindrone-ethinyl estradiol (07/08 oral tablet) 1 Tabs Oral (given by mouth) every day. Last Dose: ___ [facility], [facility] [place], [place] [id number], [phone] ciprofloxacin-dexameth asone otic (Ciprodex 0.3%-0.1% otic suspension) 4 Drops Both ears 2 times a day for 7 Days. right ear, not both. Refills: 0. doxycycline (doxycycline hyclate 100 mg oral capsule) 1 Capsules Oral (given by mouth) 2 times a day for 10 Days. Refills: 0. Other Medications celecoxib (CeleBREX 200 mg oral capsule) 1 Capsules Oral (given by mouth) every day as needed as needed for pain for 10 Days. Refills: 0. levothyroxine (levothyroxine 200 mcg (0.2 mg) oral tablet) 1 Tabs Oral (given by mouth) every day. norethindrone-ethinyl estradiol (Junel Fe 07/08 oral tablet) 1 Tabs Oral (given by mouth) every day. Care Team Members: Attending Physician: Jaime Logan PA-C Consulting Physician: Referring Physician: Provider Role Assigned Unassigned Jaime Logan PA-C ED MidLevel 09/10/2018 18:55:38 Jahaira Titus ED Nurse 09/10/2018 18:57:29 09/10/2018 18:57:34 Lainey Servin ED Nurse 09/10/2018 18:57:36 Jahaira Titus ED Nurse 09/10/2018 18:57:40 Follow up: With: Address: When: Emergency Room , only if needed Comments: Return for any worsening symptoms, difficulty breathing/swallowing, inability to tolerate fluids, persistent fever or other concerns With: Address: When: Xochilt Malou [address] [place] [address], [address] [place] [phone] Business (1) Discharge Orders: Discharge Patient 09/10/18 19:12:00 EDT, Discharge to Home, Self Patient Education Information: EXTERNAL EAR INFECTION (Adult); OTITIS MEDIA, Abx Tx (Adult) [facility] Poison Help line: . [facility] Hotline: [place] Tobacco Quit Line: [place], [place]) [address]: [phone] [place], [place]) [address]: [phone] [facility] [address] [place], [place]: [phone] [facility] ED Note-Physicianon 09-11-19 19 ED Note-Physician Chief Complaint Right ear pain, bloody drainage, started a week ago. History of Present Illness Patient presents to ED c/o right ear pain and drainage x 1 week. She also reports runny nose, cough and intermittent fever. Patient denies difficulty breathing/swallowing, vomiting. Symptoms are aggravated by laying flat, pressure and alleviated by nothing. Patient has had similar symptoms multiple times in the past and has seen ENT. She has not taken any medication prior to arrival. Review of Systems General: [Negative for fever, chills, weakness, malaise] Eyes: [Negative for injury, redness, pain, discharge] ENT: [Positive for right ear pain, drainage, rhinorrhea. Negative for sinus pain, sore throat, difficulty swallowing, difficulty handling secretions, hoarseness] Neck: [Negative for injury, pain, swelling, stiffness] Cardiovascular: [Negative for chest pain, palpitations, edema] Respiratory: [Positive for cough. Negative for shortness of breath, wheezing, pleuritic chest pain, hemoptysis] Abdomen/GI: [Negative for abdominal pain, nausea, vomiting, diarrhea] Skin: [Negative for injury, rash, discoloration] All other systems reviewed are negative and normal Physical Exam General: [Alert, awake, no apparent distress, afebrile, well hydrated] Eyes: [PERRL, extraocular movements intact, clear conjunctiva] Head: [Normocephalic, atraumatic] ENT: [External ear normal, right ear canal w/erythema and mild swelling, left ear canal w/out redness, swelling, no discharge bilaterally. Right tympanic membrane is erythematous, left is translucent without erythema. Patent nares w/out rhinorrhea. No tonsillar enlargement, erythema, or exudate. Uvula midline and airway is patent] Neck: [Non-tender, supple, no nuchal rigidity, full range of motion, no swelling, no lymphadenopathy] Cardiovascular: [Regular rate and rhythm, no appreciated murmurs, normal S1 and S2, strong radial pulses w/intact distal perfusion] Respiratory: [Lungs clear to auscultation w/out wheezes, rhonchi, or rales, normal excursion, no accessory muscle use, no stridor] Skin: [Mccormick, warm, dry, no injury, no rashes] Neuro: [Alert and oriented x 3, GCS 15, Normal mentation and speech. Moves all extremities w/out motor or sensory deficit, gait is steady] Psych: [Normal mood and affect, thought process is clear and linear] Vitals & Measurements T: 36.3 ?C (Oral) RR: 18 BP: 120/81 SpO2: 92% HT: 165.1 cm DOSE WT: 90.7 kg Additional Vitals Peripheral Pulse Rate: 81 bpm Medical Decision Making Differential Diagnosis: otitis media, otitis externa, otalgia The results of pertinent diagnostic studies and exam findings were discussed. The patient?s provisional diagnosis and plan of care were discussed with the patient and present family. The patient and/or present family expressed understanding of the diagnosis and plan. The nurse was instructed to provide written instructions and appropriate follow-up information. The patient understands their need and responsibility to obtain additional follow-up as instructed. The risks of medications administered and prescribed were discussed with the patient and family present. Assessment/Plan Patient w/otitis media and otitis externa on exam. Vitals are stable. Will d/c home w/Rx for Doxycycline and Cipro drops and have her follow up w/PCP for recheck. Advised her to return for any worsening symptoms, difficulty breathing/swallowing, inability to tolerate fluids, persistent fever or other concerns. 1. Right otitis media 2. Right otitis externa Orders: ciprofloxacin-dexameth asone otic, 4 drops, Ear-Both, BID, right ear, not both, X 7 days, # 7.5 mL, 0 Refill(s), 09/17/18 19:10:00 EDT, Pharmacy: [facility] doxycycline, 100 mg, Oral, Tab, Once, First Dose: 09/10/18 19:08:00 EDT, Stop Date: 09/10/18 19:08:00 EDT, STAT, Dispense From Location: [facility], Otitis media doxycycline, 1 caps, Oral, BID, X 10 days, # 20 caps, 0 Refill(s), 09/20/18 19:10:00 EDT, Pharmacy: [facility]. Discharge Patient Problem List/Past Medical History Ongoing Hypothyroid Historical No qualifying data Procedure/Surgical History section Medications Home 07/08 oral tablet, 1 tabs, Oral, Daily levothyroxine 200 mcg (0.2 mg) oral tablet, 200 mcg, 1 tabs, Oral, Daily Inpatient doxycycline, 100 mg, Oral, Once Prescriptions CeleBREX 200 mg oral capsule, 200 mg, 1 caps, Oral, Daily, PRN Ciprodex 0.3%-0.1% otic suspension, 4 drops, Ear-Both, BID doxycycline hyclate 100 mg oral capsule, 100 mg, 1 caps, Oral, BID Allergies amoxicillin (Swelling) codeine (Swelling) Social History Alcohol Never Tobacco Never (less than 100 in lifetime) Use:. Family History Patient was adopted Diagnostic Results XRay No qualifying data available. Computerized Tomagraphy No qualifying data available. Ultrasound No qualifying data available. Magnetic Resonance Imaging No qualifying data available. Electronically signed by Jaime Logan PA-C 09/10/18 19:54 EDT [facility] Ambulatory Patient Education on 07-25-2018 Ambulatory Patient Education Patient Education Materials Name: Lana Carrillo Current Date: 07/25/2018 15:33:58 [facility] : 1990 The following sheet(s) are the Patient Education Leaflets for Lana Carrillo Ambulatory TMJ Syndrome The temporomandibular joint (TMJ) is the joint that connects your lower jaw to your head. You can feel it in front of your ears when you open and close your mouth. TMJ disorders involve chronic or recurrent pain in the joint. When treated, symptoms of TMJ disorders usually go away within a few months. Causes There is no widely agreed-on cause of TMJ disorders. They have been linked to injury, arthritis, chronic fatigue syndrome, and fibromyalgia. A definite connection has not been shown, though. Symptoms ? Pain in the face, jaw, or neck ? Pain with jaw movement or chewing ? Locking or catching sensation of the jaw ? Clicking, popping, or grinding sounds with movement of the TMJ ? Headache ? Ear pain Home care Modest, nonsurgical treatments are a good first step toward relieving symptoms. Try the approaches described below. ? Rest the jaw by avoiding crunchy or htni-cy-yqom foods. Don't eat hard or sticky candies. Soft foods and liquids are easier on the jaw. ? Protect your jaw while yawning. If you need to yawn, put your fist under your chin to prevent your mouth from opening up too wide. ? To help relieve pain, try applying hot or cold packs to the painful area. Try both hot and cold to find out which works best for you. To make a cold pack, put ice cubes in a plastic bag that seals at the top. Wrap the bag in a clean, thin towel or cloth. Never put ice or an ice pack directly on the skin. If you use hot packs (small towels soaked in hot water), be careful not to burn yourself. ? You may take acetaminophen or ibuprofen for pain, unless you were given a different pain medicine. (Note: If you have chronic liver or kidney disease or have ever had a stomach ulcer or gastrointestinal bleeding, talk with your healthcare provider before using these medicines. Also talk to your provider if you are taking medicine to prevent blood clots.) Don't give aspirin to a child younger than age 19 unless directed by the child's provider. Taking aspirin can put a child at risk for Davon syndrome. This is a rare but very serious disorder that most often affects the brain and the liver. Reducing stress If stress seems to be contributing to your symptoms, try to identify the sources of stress in your life. These aren't always obvious. Common stressors include: ? Everyday hassles. These include things such as traffic jams, missed appointments, or car trouble. ? Major life changes. These can be good, such as a new baby or job promotion. And they can be bad, such as losing a job or losing a loved one. ? Overload. The feeling that you have too many responsibilities and can't take care of everything at once. ? Helplessness. Feeling like your problems are more than you can solve. When possible, do something about your sources of stress. See if you can avoid hassles, limit the amount of change in your life at one time, and take breaks when you feel overloaded. Unfortunately, many stressful situations cannot be avoided. So learning how to manage stress better is very important. Getting regular exercise, eating nutritious, balanced meals, and getting adequate rest all help to make everyday stress more manageable. Certain techniques are also helpful: relaxation and breathing exercises, visualization, biofeedback, meditation, or simply taking some time out to clear your mind. For more information, talk with your healthcare provider. Follow-up care Follow up with your healthcare provider, or as advised. Further testing and additional treatment may be required. If changes to your lifestyle do not improve your symptoms, talk with your healthcare provider about other available therapies. These include bite guards for help with teeth grinding, stress management techniques, and more. If stress is an important factor and does not respond to the above simple measures, talk with your healthcare provider about a referral for stress management. If X-rays were done, they will be reviewed by a specialist. You will be notified of the results, especially if they affect treatment. Call 911 Call 911 if any of these occur: ? Trouble breathing or swallowing, wheezing ? Confusion ? Extreme drowsiness or trouble awakening ? Fainting or loss of consciousness ? Rapid heart rate When to seek medical advice Call your healthcare provider right away if any of these occur: ? Swollen or red face ? Pain gets worse ? Neck, mouth, tooth, or throat pain gets worse ? Fever of 100.4?F (38?C) or higher, or as directed by your healthcare provider ? [id number] [employer]. [address] [place] [address]. All rights reserved. This information is not intended as a substitute for professional medical care. Always follow your healthcare professional's instructions. [facility] Otol[facility]ology Office/Clinic Noteon 07-25-2018 Otolaryngology Office/Clinic Note Chief Complaint Patient states My family physician thinks I needs tubes in my ears. On antibiotic now for a right ear infection. Still having ear pain and itching History of Present Illness This 28-year-old woman comes here today complaining of a 5 day history of severe right ear pain. There is no significant hearing loss or drainage associated with this. She is concerned there is an acute infection. 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 Review of Systems General Cardiovascular EENMT Ear pain: Yes Facial pain: Yes Hearing loss: Yes Hoarseness: Yes Nasal congestion: Yes Nosebleeds: No Other EENMT: Yes Sore_throat: Yes Tinnitus: Yes Gastrointestinal Dysphagia: No Genitourinary Hematologic/Lymphatic Musculoskeletal Neurological Psychiatric Respiratory Cough: Yes Sputum production: No Skin Physical Exam Vitals & Measurements BP: 139/80 General: [Alert and oriented, well nourished, no acute distress]. Eye: [PERRL, EOMI, normal conjunctiva]. HENT: [Normocephalic Ears: Both canals are clear the tympanic membranes are healthy with normal landmarks and aerated middle ear space. Luis localizes midline with equal hearing at 128 Hz Neck: [Supple, severe pain to minimal palpation of right TMJ with and without jaw motion. no lymphadenopathy]. Skin: [Skin is warm, dry and pink, no rashes or lesions]. Neurologic: [Awake, alert, and oriented X3, CN II-XII intact]. Psychiatric: [Cooperative, appropriate mood and affect]. Additional Vitals BP Position/Location: Sitting, Right arm Peripheral Pulse Rate: 75 bpm Assessment/Plan 1. Referred otalgia of right ear Ordered: hydrocodone-acetaminop hen, 1 tabs, Oral, q4hr, PRN, X 5 days, # 16 tabs, 0 Refill(s), 07/30/18 15:27:00 EST 2. TMJ arthralgia Plan: I'm giving the patient [place]. She apparently had some itching with the codeine. I've advised her that if it causes itching or irritation to stop it. I'm prescribing it because her pain is so severe she is having trouble sleeping. I'm also giving her a prescription for Celebrex and have urged her to follow up with her dentist to ensure that there is no dental problem though her teeth to percussion was no discomfort on the right. Problem List/Past Medical History Ongoing Hypothyroid Historical No qualifying data Procedure/Surgical History section Medications CeleBREX 200 mg oral capsule, 200 mg, 1 caps, Oral, Daily, PRN 07/08 oral tablet, 1 tabs, Oral, Daily levothyroxine 200 mcg (0.2 mg) oral tablet, 200 mcg, 1 tabs, Oral, Daily [place] 5 mg-325 mg oral tablet, 1 tabs, Oral, q4hr, PRN Allergies amoxicillin (Swelling) codeine (Swelling) Social History Alcohol Never Tobacco Never (less than 100 in lifetime) Use:. Family History Patient was adopted Diagnostic Results No qualifying data available. No qualifying data available. No qualifying data available. No qualifying data available. Electronically signed by Beulah Yarbrough MD 07/25/18 15:30 EST [facility] Otolaryngology Consultationo n 03-16-2018 Otolaryngology Consultation Chief Complaint Patient states I have been having problems with ear infections for over two years History of Present Illness This is a very pleasant 27-year-old mother of 2 who for the last couple years has had episodes of recurrent external otitis. More recently the infections have been worse in the left ear with the ear swelling shot completely. Her last infection was about 1 month ago. She feels the hearing in her left ear is still reduced though that presently there is no pain or drainage. She denies history of ear problems when she was younger been swimming excessively. Review of Systems General Adult ROS Fatigue: No Appetite change: No Weight gain: No Weight Loss: No Cardiovascular Chest pain/pressure: No Palpitations: No EENMT Ear pain: Yes Hearing loss: Yes Nasal congestion: No Nasal discharge: No Tinnitus: Yes Gastrointestinal Dysphagia: No Heartburn: No Genitourinary Decreased urine output: No Frequency: No Hematologic/Lymphatic Bleeding tendencies: No Bruising: No Musculoskeletal Back pain: Yes Joint pain: Yes Joint stiffness: No Neurological Headache: No Memory problems: No Psychiatric Anxiety: Yes Depression: Yes Suicidal Ideation: No Respiratory Cough: No Shortness_of_breath: No Wheezing: No Skin Itching: Yes Lesion/change in moles: No Rash: No Physical Exam Vitals & Measurements BP: 125/83 WT: 100 kg General: [Alert and oriented, well nourished, no acute distress]. Eye: [PERRL, EOMI, normal conjunctiva]. HENT: [Normocephalic Ears: Ear canals are clear with minimal amount of cerumen. Her tympanic membranes are both healthy with normal landmarks and an aerated middle ear space. Nose: Marketed septal deformity to left with reduced airway. No intranasal purulence or stasis. Oral cavity: healthy moist mucosa with good dental repair. Oropharynx unremarkable with 1-2+ tonsils Neck: [Supple, mild stylohyoid muscle pain with TMJ pain worse to palpation left with jaw movement, no lymphadenopathy]. Lungs: [Clear to auscultation and percussion, non-labored respiration]. Heart: [Normal rate, regular rhythm, no murmur, gallop or edema]. Skin: [Skin is warm, dry and pink, no rashes or lesions]. Neurologic: [Awake, alert, and oriented X3, CN II-XII intact]. Psychiatric: [Cooperative, appropriate mood and affect]. Additional Vitals Body Mass Index Measured: 36.29 kg/m2 BP Position/Location: Sitting, Left arm Peripheral Pulse Rate: 88 bpm Assessment/Plan 1. Asymmetrical hearing loss of left ear 2. TMJ arthralgia 3. Sensorineural hearing loss (SNHL), bilateral Audiogram: Patient has a bilateral 30 dB hearing loss upsloping to 20 DB in the high frequencies. Speech discrimination is 100% right and 88% left Recommendation: I will obtain an ABR to rule out any central cause of the asymmetric loss with discrimination. I'm also giving the patient a TMJ handout and I've discussed the precautions there within. Problem List/Past Medical History Ongoing Hypothyroid Historical No qualifying data Procedure/Surgical History section. Medications Home 07/08 oral tablet, 1 tabs, Oral, Daily levothyroxine 200 mcg (0.2 mg) oral tablet, 200 mcg, 1 tabs, Oral, Daily Inpatient No active inpatient medications Prescriptions No active Prescriptions Allergies amoxicillin (Swelling) codeine (Swelling) Social History Alcohol Never Tobacco Never smoker Family History Patient was adopted Lab Results Microbiology No qualifying data available. Electronically signed by Beulah Yarbrough MD 03/16/18 10:20 EDT Electronically signed by Beulah Yarbrough MD 03/27/2018 14:04 EDT [facility] Vital Signs Date Time Vital Sign Value Performing Clinician Facility 07-11-2023 11:45-0500 Body height 165.1 cm Kita Vargas Other [facility] Other 07-11-2023 11:45-0500 Body mass index (BMI) [Ratio] 39.93 kg/m2 Kita Vargas Other [facility] Other 07-11-2023 11:45-0500 Body weight 108.86 kg Kita Vargas Other [facility] Other 07-11-2023 11:45-0500 Diastolic blood pressure 82 mm[Hg] Kita Vargas Other [facility] Other 07-11-2023 11:45-0500 Systolic blood pressure 128 mm[Hg] Kita Varg[facility] Other [facility] Other Encounters Encounter Date Encounter Type Care Provider Facility Start: 07-11-2023 End: 07-11-2023 ambulatory Kita Vargas Other [facility] Other Start: 07-11-2023 Office outpatient vi sit 15 minutes Kita Vargas [facility] Start: 08-06-2021 Gynecological examination normal Kita Vargas Other [facility] Other Start: 11-10-2020 End: 11-11-[address] REBECCA OJNES Facility:[facility] Start: 05-06-2020 End: 05-07-[address] KITA VARGAS Facility:[facility] Start: 04-25-[address] KITA VARGAS Facil ity:[facility] Start: 09-29-2018 End: 10-05-2018 Evaluation and management of inpatient [facility] Start: 09-28-2018 End: 09-29-2018 Emergency department patient visit [facility] Start: 09-10-2018 End: 09-10-2018 Emergency department patient visit Xochilt Westfall Facility:[facility] Start: 07-25-2018 End: 07-26-2018 Patient encounter procedure BEULAH YARBROUGH Facility:[facility] Start: 04-09-2018 Patient encounter procedure Madiha Barreto Facility:[facility] Start: 03-16-2018 End: 03-17-2018 Patient encounter procedure BEULAH YARBROUGH Facility:[facility] Procedures Date Procedure Procedure Detail Performing Clinician Start: 10-04-2018 DISCHARGE PATIENT DIMA CHRISTIAN Start: 09-30-2018 Radex elbow complete minimum 3 views [facility] Start: 09-30-2018 Assay of free [facility]roxine [facility] Start: 09-30-2018 Assay of thyroid stimulating hormone tsh [facility] Start: 09-30-2018 Blood count complete auto&auto difrntl wbc [facility] Start: 09-30-2018 Lipid panel [facility] Start: 09-29-2018 IP CONSULT TO SUBSTATION OPERATOR AL MEDICINE [facility] Start: 09-29-2018 DIET [facility]AL [facility] Start: 09-29-2018 FULL CODE [facility] Start: 09-29-2018 IP CONSULT TO HOSPITALIST BALDOMEROALTA [facility] Start: 09-29-2018 MONITOR [facility] Start: 09-29-2018 PATIENT STATUS (DIRECT) [facility] Start: 09-29-2018 TOBACCO CESSATION EDUCATION [facility] Start: 09-29-2018 VITAL SIGNS [facility] Start: 09-29-2018 Drug screen class list a [facility] Start: 09-29-2018 Urine test visual color cmprsn meths [facility] Start: 09-29-2018 Urnls dip stick/tabl et rgnt auto w/o microscopy [facility] VARLAS Start: 09-29-2018 SUICIDE PRECAUTIONS SILVA TELHS VARLAS Start: 09-29-2018 Ecg routine ecg w/le ast 12 lds w/i&r PANTELHS VARLAS Start: 09-29-2018 Assay of acetaminophen PANTELHS VARLAS Start: 09-29-2018 Assay of ethanol PANTEL HS VARLAS Start: 09-29-2018 Assay of salicylate SILVA TELHS VARLAS Start: 09-29-2018 Assay of thyroid stimulating hormone tsh PANTELHS VARLAS Start: 09-29-2018 Assay of troponin quantitative PANTELHS VARLAS Start: 09-29-2018 Blood count complete auto&auto difrntl wbc PANTELHS VARLAS Start: 09-29-2018 Prothrombin time PANTEL HS VARLAS Start: 09-29-2018 Thromboplastin time partial plasma/whole blood PANTELHS VARLAS screening Kitadelicia cisneros Other screening Kita cisneros Other Contraception care education Kita Alicia Other Depression screening Kita Alicia Other Diabetes mellitus screening Kita Alicia Other visit Kita Alicia Other Payers Date Payer Category Payer Private Health Insurance [id number] 2014 Unknown [id number] 1999 Private Health Insurance 1990 Unknown [id number] 2.16.8 [id number] 1990 Unknown [id number] 2.16.8 [id number] 1990 Unknown [id number] 2.16.8 [id number] 1990 Unknown [id number] 2.16.8 [id number] 1990 Unknown [id number] 2.16.8 [id number] 1990 Unknown [id number] 2.16.8 [id number] 1990 Unknown [id number] 2.16.84 [id number] 1990 Unknown [id number] 2.16.84 [id number] 1990 Unknown [id number] 2.16.84 [id number] 1959 Self-pay [id number] 1959 Unknown [id number] Medicaid [id number] 2. [id number] Social History Date Type Detail Facility Sex Assigned At [facility] Other Evaluation note 07-11-2023 Note Date & Type Note Facility 07-11-2023 Evaluation note Encounter Date Diagnosis Assessment Notes Jun, Hypothyroidism, unspecified (ICD-10 - E03.9) Due for labs in 2-3 months. Will increase dose based on the lab results and her present fatigue Jun, Binge eating disorder (ICD-10 - F50.81) start [facility] [facility]. Jun, Moderate persistent asthma with acute exacerbation (ICD-10 - J45.41) proair and flovent sent in. wheezes each night. Jun, Adult ADHD (ICD-10 - F90.9) [facility] Other History general Narrative - Reported Note Date & Type Note Facility History general Narrative - Reported Type Medical History Problem Title : EXPO SURE TO NON-STD INFECTION: The patient has not been exposed to AIDS, HIV, hepatitis, TB, influenza, MMR, DPT, polio or tetanus. There have been no recent rashes or viral illnesses, Problem Status : Inactive,, Medical History Problem Title : FIRS T TRIMESTER BLEED, Problem Status : Inactive, Attribute Title : Patient Risk Factors,, Medical History Problem Title : GEST ATIONAL DIABETES, Problem Status : Inactive, Attribute Title : Patient Risk Factors,, Medical History Problem Title : H/O EARLY MISCARRIAGE, Problem Status : Inactive, Attribute Title : Patient Risk Factors,, Medical History Problem Title : HYPO THYROIDISM, Problem Status : Inactive, Attribute Title : Patient Risk Factors,, Medical History Problem Title : MEDI GRABIEL: Hypothyroidism, Problem Status : Inactive,, Medical History Problem Title : Prob lems Reconciled, Problem Status : Active,, Medical History Problem Title : SECO ND TRIMESTER BLEEDING, Problem Status : Inactive, Attribute Title : Patient Risk Factors,, Medical History Problem Title : She has not had a rash or viral illness since her last menstrual period, Problem Status : Active,, Medical History Problem Title : The patient has not been exposed to AIDS, HIV, hepatitis, TB, influenza, MMR, DPT, polio or tetanus. There have been no recent rashes or viral illnesses, Problem Status : Active,, Medical History Problem Title : The patient has not been exposed to non-STD infections, Problem Status : Active,, Medical History Problem Title : MICHELLE SFUSION HISTORY: No history of receiving blood or blood product transfusion(s), Problem Status : Inactive,, Medical History Problem Title : Unsp ecified Diagnosis, Problem Status : Inactive,, Surgical History Problem Title : Cesa rean Section - 1, Problem Status : Active, Attribute Title : [Insert Date into Details], Surgical History Problem Title : Cesa rean Section - 2, Problem Status : Active, Surgical History curtis gtz 2020 [facility]O Other Summary Purpose Family History No Family History Records FoundNo Family History Records FoundNo Family History Records FoundNo Family History Records FoundNo Family History Records Found Advance Directives No Advanced Directives Records FoundNo Advanced Directives Records FoundNo Advanced Directives Records FoundNo Advanced Directives Records FoundNo Advanced Directives Records Found Additional Source Comments INFORMATION SOURCE (unrecogn ized section and content) DATE CREATED AUTHOR 09/12/2018 [facility] DATE CREATED AUTHOR AUTHOR'S ORGANIZ ATION 09/30/2018 [facility] DATE CREATED AUTHOR AUTHOR'S ORGANIZ ATION 10/05/2018 [facility] DATE CREATED AUTHOR AUTHOR'S ORGANIZ ATION 11/14/2020 [facility] DATE CREATED AUTHOR AUTHOR'S ORGANIZ ATION 09/23/2021 [facility] REASON FOR VISIT (unrecogniz ed section and content) Diet Pill/ Inhaler Discussio n FOR RECORDS PERTAINING TO PATIENTS WHO ARE OR HAVE BEEN ENROLLED IN A CHEMICAL DEPENDENCY/SUBSTANCEABUSE PROGRAM, SOME INFORMATION MAY BE OMITTED. This clinical summary was aggregated from multiple sources. Caution should be exercised in using it in the provision of clinical care. This summary normalizes information from multiple sources, and as a consequence, information in this document may materially change the coding, format and clinical context of patient data. In addition, data may be omitted in some cases. CLINICAL DECISIONS SHOULD BE BASED ON THE PRIMARY CLINICAL RECORDS. [facility]. provides no warranty or guarantee of the accuracy or completeness of information in this document.
[2023-10-23 15:20] LABS: Free T4 1.67 ng/dL (0.76-1.46)
[2023-10-23 15:26] LABS: Thyroid Stimulating Hormone 0.045 uIU/mL (0.358-3.740)
== END 2023-10-23 13:41 | disposition home or self-care (01) ==
LOC: LAB 13:42
PROVIDERS: PCP Family Medicine; Visit Provider Family Medicine
DX: E03.9 Hypothyroidism, unspecified (principal)
CPT/HCPCS: 36415; 84439; 84443

== ENCOUNTER 2024-05-25 09:17 | Emergency (ER) | payer OTHER, SELFPAY ==
[2024-05-25 09:23] VITALS: BP 146/85; PULSE 88; TEMP 36.8; O2SAT 96; BMI 41.6
--- NOTE | 2024-05-25 09:37 | ED.GENADUL1 ---
HPI HPI - General Adult General Chief complaint: Urogenital-Female Stated complaint: lower back pain Time Seen by Provider: 05/25/24 09:18 Source: patient Mode of arrival: walk-in History of Present Illness HPI narrative: 33-year-old female presents for 2 issues. First she is complaining of right flank pain which comes and goes and it started yesterday. There is no precipitating injury or unusual activity. Movement does not seem to make it worse. She is never had a kidney stone and has had no hematuria or dysuria. Second she has had a cough and has been coughing up green phlegm. She quit smoking about a month ago. Related Data Home Medications ?Medication ?Instructions ?Recorded ?Confirmed drospirenone 3 mg-ethinyl 1 tab PO DAILY 05/25/24 05/25/24 estradiol 0.02 mg tablet levothyroxine 175 mcg tablet 175 mcg PO DAILY 05/25/24 05/25/24 Previous Rx's ?Medication ?Instructions ?Recorded albuterol sulfate 90 mcg/actuation 2 inh inhalation Q4H PRN shortness 05/25/24 aerosol inhaler of breath or wheezing #8.5 grams azithromycin 250 mg tablet See Rx Instructions PO .COMPLEX #6 05/25/24 (Zithromax Z-Charanjit) tabs benzonatate 100 mg capsule 100 mg PO TID PRN cough #20 caps 05/25/24 ibuprofen 800 mg tablet 800 mg PO Q8H PRN pain #20 tabs 05/25/24 methocarbamol 500 mg tablet 500 mg PO Q8H PRN pain #20 tabs 05/25/24 Allergies Allergy/AdvReac Type Severity Reaction Status Date / Time Penicillins AdvReac Diarrhea Verified 05/25/24 09:23 Opioid HPI Opioid Management Most Recent Opioid Data: No Data to Display Review of Systems ROS Narrative A ten point review of systems is negative except as noted above. PFSH PFSH Social History Little interest or pleasure in doing things: not at all Feeling down, depressed, or hopeless: not at all Exam Narrative Exam Narrative: Nurses note and vital signs reviewed and patient is not hypoxic. General: The patient appears in no apparent distress. Skin: Warm, dry, no pallor noted. There is no rash noted. Head: Normocephalic, atraumatic Eye: Normal conjunctiva, no drainage Ears, Nose, Mouth, and Throat: oral mucosa is moist. Nares patent. Cardiovascular: Regular Rate and Rhythm Respiratory: Bilateral rhonchi throughout Back: non-tender, no CVA tenderness bilaterally to percussion. No bruise or rash on her back GI: Soft and nontender Musculoskeletal: The patient has no evidence of calf tenderness, no pitting edema, symmetrical pulses noted bilaterally Neurological: A&O, normal speech Psychiatric: Cooperative Constitutional Vital Signs, click to edit/add: Last Vital Signs Temp 98.3 F 05/25/24 09:23 Pulse 88 05/25/24 09:23 Resp 18 05/25/24 09:23 BP 146/85 H 05/25/24 09:23 Pulse Ox 96 05/25/24 09:23 O2 Del Method Room Air 05/25/24 09:23 Course Vital Signs Vital signs: Vital Signs Temperature 98.3 F 05/25/24 09:23 Pulse Rate 88 05/25/24 09:23 Respiratory Rate 18 05/25/24 09:23 Blood Pressure 146/85 H 05/25/24 09:23 Pulse Oximetry 96 05/25/24 09:23 Oxygen Delivery Method Room Air 05/25/24 09:23 Temperature 98.3 F 05/25/24 09:23 Pulse Rate 88 05/25/24 09:23 Respiratory Rate 18 05/25/24 09:23 Blood Pressure 146/85 H 05/25/24 09:23 Pulse Oximetry 96 05/25/24 09:23 Oxygen Delivery Method Room Air 05/25/24 09:23 Medical Decision Making MDM Narrative Medical decision making narrative: Scan shows punctate stone in the right kidney but no cause for her symptoms. Urinalysis and test are negative as well. She has been coughing a great deal and I suspect she may have pulled a muscle in her flank area. She is being treated for an upper respiratory infection as well. Treatment diagnosis and follow-up were discussed with the patient. Differential Diagnosis Differential Diagnosis: Kidney stone, UTI, muscle strain Lab Data Lab results reviewed: Yes I reviewed the patient's lab results Labs: Lab Results 05/25/24 Range/Units 09:30 Urine Color Lt. yellow (YELLOW) Urine Clarity Clear (CLEAR) Urine pH 6.5 (5.0-9.0) Ur Specific [place] 1.020 (1.005-1.025) Urine Protein Negative (NEG/TRACE) mg/dL Urine Glucose (UA) Negative (NEGATIVE) mg/dL Urine Ketones Negative (NEGATIVE) mg/dL Urine Occult Blood Negative (NEGATIVE) Urine Nitrite Negative (NEGATIVE) Urine Bilirubin Negative (NEGATIVE) Urine Urobilinogen 0.2 (0.2-1.0) EU/dL Ur Leukocyte Esterase Negative (NEGATIVE) Urine RBC None seen (0-2) #/HPF Urine WBC 0-2 A (NONE SEEN) #/HPF Ur Squamous Epith Cells Rare (NONE/RARE) #/LPF Urine Crystals None seen (None Seen) #/HPF Urine Bacteria Trace A (NONE SEEN) #/HPF Urine Casts None seen (NONE SEEN) #/LPF Urine Mucus None seen (NONE SEEN) Urine HCG, Qual Negative (NEGATIVE) Imaging Data CT scan - abdomen: Radiologist's impression: ITS Impressions Abdomen CT 05/25/24 09:54 IMPRESSION: 1. No obstructive uropathy or other acute process. 2. Punctate right nephrolithiasis. Electronically authenticated by: PROMISE GODWIN Date: 05/25/2024 10:59 Discharge Plan Discharge Chief Complaint: Urogenital-Female Clinical Impression: Flank pain, Upper respiratory infection Patient Disposition: Home, Self-Care Time of Disposition Decision: 11:07 Condition: Good Mode of Transportation: Private Vehicle Prescriptions / Home Meds: New methocarbamol 500 mg tablet 500 mg PO Q8H PRN (Reason: pain) Qty: 20 0RF azithromycin [Zithromax Z-Charanjit] 250 mg tablet See Rx Instructions .ROUTE .COMPLEX Qty: 6 0RF Rx Instructions: For 250 mg dose pack: take 500 mg today (day 1), then 250 mg for 4 days (days 2-5) ibuprofen 800 mg tablet 800 mg PO Q8H PRN (Reason: pain) Qty: 20 0RF benzonatate 100 mg capsule 100 mg PO TID PRN (Reason: cough) Qty: 20 0RF albuterol sulfate 90 mcg/actuation HFA aerosol inhaler 2 inh inhalation Q4H PRN (Reason: shortness of breath or wheezing) Qty: 8.5 0RF No Action levothyroxine 175 mcg tablet 175 mcg PO DAILY drospirenone-ethinyl estradiol 3-0.02 mg tablet 1 tab PO DAILY Print Language: Korean Instructions: Upper Respiratory Infection (ED), Flank Pain (ED) Referrals: Kita Hobbs MD [Primary Care Provider] - 1 week
[2024-05-25 09:41] LABS: Bilirubin Urine NEGATIVE (NEGATIVE); Blood Urine NEGATIVE (NEGATIVE); Clarity Urine CLEAR (CLEAR); Color Urine LT. YELLOW (YELLOW); Glucose Urine UA NEGATIVE (NEGATIVE); Ketones Urine NEGATIVE (NEGATIVE); Leukocyte Esterase Urine NEGATIVE (NEGATIVE); Nitrite Urine NEGATIVE (NEGATIVE); Protein Urine NEGATIVE (NEG/TRACE); Urobilinogen Urine 0.2 EU/dL (0.2-1.0); pH Urine 6.5 (5.0-9.0)
[2024-05-25 09:44] LABS: HCG Qualitative Urine* NEGATIVE (NEGATIVE); Internal Control Within Normal Limits
--- NOTE | 2024-05-25 09:54 | CT_ITS ---
The [address] [address] Patient Name: EDWINA ROJAS MRN: [id number] date: 1990 Sex: F Assigned Patient Location: ER Current Patient Location: ER Accession/Order Number: [id number] Exam Date: 05/25/2024 10:15 Report Date: 05/25/2024 10:59 At the request of: MADAI JEFFERS Procedure: CT abdomen wo con EXAMINATION: CT abdomen wo con INDICATION: Right flank pain, rule out stone. COMPARISON: None. TECHNIQUE: Multiple contiguous axial CT images of the abdomen were obtained without the use of intravenous contrast. Sagittal and coronal reconstructions were performed. Dose reduction techniques were achieved by using: automated exposure control and/or adjustment of mA and /or kV according to patient size and/or use of iterative reconstruction technique. FINDINGS: Evaluation of visceral organs limited by noncontrast technique. LOWER CHEST: No significant abnormality. ABDOMEN AND PELVIS: LIVER: Unremarkable. BILIARY SYSTEM: Normal gallbladder. No biliary ductal dilatation. PANCREAS: Unremarkable. SPLEEN: Tiny calcified granulomas. ADRENAL GLANDS: Normal. URINARY SYSTEM: Punctate nonobstructing 1-2 mm right renal stone. No hydronephrosis or urolithiasis. Unremarkable bladder. REPRODUCTIVE: GASTROINTESTINAL TRACT: Normal caliber bowel. No bowel wall thickening or inflammation. Normal appendix. VESSELS: Nonaneurysmal abdominal aorta. LYMPH NODES: No adenopathy. PERITONEUM: No ascites or pneumoperitoneum. MUSCULOSKELETAL: SOFT TISSUES: Unremarkable soft tissues. BONES: No acute osseous abnormality or suspicious osseous lesion. MILLER: (series:image) CT/CT abdomen wo con IMPRESSION: 1. No obstructive uropathy or other acute process. 2. Punctate right nephrolithiasis. Electronically authenticated by: PROMISE GODWIN Date: 05/25/2024 10:59
[2024-05-25 10:00] LABS: Bacteria Urine TRACE #/HPF (NONE SEEN); Cast Seen? NONE SEEN #/LPF (NONE SEEN); Crystals Seen? None Seen #/HPF (None Seen); Mucus Urine NONE SEEN (NONE SEEN); RBC Urine NONE SEEN #/HPF (0-2); Squamous Epithelial Cell Urine RARE #/LPF (NONE/RARE); WBC Urine 0-2 #/HPF (NONE SEEN)
== END 2024-05-25 11:19 | disposition home or self-care (01) ==
PROVIDERS: Emergency Provider Emergency Medicine; PCP Family Medicine
DX: J06.9 Acute upper respiratory infection, unspecified (principal); R10.30 Lower abdominal pain, unspecified; Z87.891 Personal history of nicotine dependence
CPT/HCPCS: 74150; 81001; 84703; 99284

== ENCOUNTER 2024-08-05 16:44 | Outpatient (OUT) | payer OTHER, SELFPAY ==
--- OUTSIDE RECORDS SUMMARY | 2024-08-05 16:58 | XMS_ITS | CCD ---
Author Organization [facility] Care Team Providers Care Group Art Supervisor Name Role Phone BEULAH YARBROUGH Attending Unavailable Xochilt Westfall Primary Care Unavailable Madiha Barreto Attending Unavailable Malou, Xochilt Coronel Primary Care Unavailable BEULAH YARBROUGH Attending Unavailable Malou, Xochilt Coronel Primary Care Unavailable Malou, Xochilt Coronel Primary Care Unavailable JAIME LOGAN Attending Unavailable Xochilt Westfall Consulting Unavailable SUAD CARPENTER Attending UnavailXOCHILT Bernstein Primary Care Un available BALDOMERO CHRISTIANULMALEK Admitting Unavailable GINO ABDULCELIAEK Attending Unavailable XOCHILT GARAY Primary Care Un available AGUSTINA GAN Consulting Unavailable ROBERT, DR FERNANDEZ Admitting Unavailable ALICIA, DR KITA Vidal Primary Care Unavailable ROBERT, DR FERNANDEZ Attending Unavailable ROBERT, DR FERNANDEZ Consulting Unavailable Ed Dow Consulting Unavailable ALICIA, DR KITA Vidal Admitting Unavailable ALICIA, DR KITA Vidal Attending Unavailable ALICIA, DR KITA Vidal Admitting Unavailable ALICIA, DR KITA Vidal Attending Unavailable ALICIA, DR KITA Vidal Consulting Unavailable ALICIA, DR KITA Vidal Primary Care Unavailable Kita Vargas Unavailable Allergies Allergy Classification Reported Allergen(s) Allergy Type Date of Onset Reaction(s) Facility Doxycycline (1 source) Doxycycline Drug Allergy [facility] Opioid Agonists (1 source) Codeine Drug Allergy 06-19-19 [facility] Penicillins (antibiotic) (1 source) Amoxicillin Drug Allergy 03-28-20 13 [facility] (2 sources) Amoxicillin; Translations: [amoxicillin] Drug Allergy [facility] Repository (2 sources) Codeine; Translations: [codeine] Drug Allergy [facility] Repository (1 source) Codeine Drug Allergy Unknown [facility] Other (1 source) Pseudoephedrine Drug Allergy 05-25-20 Unknown [facility] Other (1 source) Allergies Reconciled Propensity to adverse reactions Unknown [facility] Other Medications Current Medications Medication Drug Class(es) Dates Sig (Normalized) Sig (Original) [id number] actuat albuterol 0.09 mg/actuat metered dose [...] Onset: 09-28-2018 Other aftercare (1 source) Other senior living (current) drug therapy; Translations: [OTH RETIREMENT CURRENT DRUG THERAPY] Onset: 11-12-2020 Episodic Other [...] HCG ( test) Ql (U) Negative Normal [facility] Comment on above: Result Comment: PERF ORMED BY: [address] [place] [address] PATHOLOGIST RECREATIONAL SPORTS DIRECTOR JUAN GRAY M.D. Performed By: #### U HCG #### [facility] [address] [place] [address] COVID-19 FRMCon 09-14-2021 SARS-CoV-2 (COVID-19) RNA ISMAEL+probe Ql (Unsp spec) Negative Normal Negative [facility] Comment on above: Order Comment: Healt hcare Worker?: N Result Comment: Testing for SARS-CoV-2 by RT-PCR This test was developed and its performance characteristics determined by [employer]) and validated at the [facility]. This test has not been [...] is terminated or revoked sooner. PERFORMED BY: [address] [address] PATHOLOGIST RECREATIONAL SPORTS DIRECTOR JUAN GRAY M.D. Performed By: #### C OVID 19 [facility] #### [place] [id number] [facility] XR ANKLE LT MIN 3 Von 2020 XR ANKLE LT MIN 3 V EXAM: XR ANKLE LT MA N 3 V, XR FOOT LT MIN [...] ED DOW Date: 2020-11-10 22:50 Normal [facility] FREE T4on 05-06-2020 Free T4 [Mass/Vol] 1.70 ng/dL Normal 0.78-2.19 [facility] Comment on above: Performed By: #### F T4 #### [facility] [address] [place] [address] Zahira Caceres TSHon 05-06-2020 TSH 0.028 uIU/mL Critically low 0.470-4.680 [facility] Comment on above: Performed By: #### T SH #### [facility] [address] [place] [address] Zahira Nicki TSH RANGE SEE BELOW Normal [facility] Comment on above: Result Comment: <0.3 4 UIU/ml HYPERTHYROID 0.34-5.60 UIU/ml EUTHYROID >5.60 UIU/ml HYPOTHYROID Performed By: #### T SH #### [facility] [address] [place] [address] Zahira Caceres CBC with Diffon 09-30-2018 Abs. Basophil 0.00 k/uL Normal 0.0-0.2 [facility] Comment on above: Performed By: #### C DP, FT4, LIPR, TSH #### [facility] [address] [facility] [address] Press Smith Helper: Kojo Chiu MD Abs.Neutrophil (Seg) 2.90 k/uL Normal 1.3-9.1 [facility] Comment on above: Performed By: #### C DP, FT4, LIPR, TSH #### [facility] [address] [facility] [place] [place], [place] [id number] [employer] Helper: Kojo Chiu MD Basophils/100 WBC (Bld) 1 % Normal 0-2 [facility] Comment on above: Performed By: #### C DP, FT4, LIPR, TSH #### [facility] [address] [facility] [place] [address] Press [employer] Helper: Kojo Chiu MD Eosinophils #/vol (Bld) 0.50 10*3/uL High 0.0-0.4 [facility] Comment on above: Performed By: #### C DP, FT4, LIPR, TSH #### [facility] [address] [facility] [address] Press [employer] Helper: Kojo Chiu MD Eosinophils/100 WBC (Bld) 8 % High 0-4 [facility] Comment on above: Performed By: #### C DP, FT4, LIPR, TSH #### [facility] [facility] [place] [address] Press [employer] Helper: Kojo Chiu MD Erythrocyte distribution width Ratio (RBC) 12.4 % Normal 11.5-14.9 [facility] Comment on above: Performed By: #### C DP, FT4, LIPR, TSH #### [facility] [facility] [place] [address] Press [employer] Helper: Kojo Chiu MD Hematocrit Volume Fraction (Bld) 40.5 % Normal 36-46 [facility] Comment on above: Performed By: #### C DP, FT4, LIPR, TSH #### [facility] [facility] [place] [address] Press Smith Helper: Kojo Chiu MD Hemoglobin mass conc (Bld) 13.9 g/dL Normal 12.0-16.0 [facility] Comment on above: Performed By: #### C DP, FT4, LIPR, TSH #### [facility] [facility] [address] Press Smith Helper: Kojo Chiu MD Lymphocytes #/vol (Bld) 2.00 10*3/uL Normal 1.0-4.8 [facility] Comment on above: Performed By: #### C DP, FT4, LIPR, TSH #### [facility] [address] [facility] [place] [address] Press [employer] Helper: Kojo Chiu MD Lymphocytes/100 WBC (Bld) 34 % Normal 24-44 [facility] Comment on above: Performed By: #### C DP, FT4, LIPR, TSH #### [facility] [address] [facility] [address] Press [employer] Helper: Kojo Chiu MD MCH Entitic mass (RBC) 30.8 pg Normal 26-34 [facility] Comment on above: Performed By: #### C DP, FT4, LIPR, TSH #### [facility] [facility] [address] Press Smith Helper: Kojo Chiu MD MCHC mass conc (RBC) 34.2 g/dL Normal 31-37 [facility] Comment on above: Performed By: #### C DP, FT4, LIPR, TSH #### [facility] [facility] [address] Press [employer] Helper: Kojo Chiu MD MCV Entitic volume (RBC) 89.9 fL Normal 80-100 [facility] Comment on above: Performed By: #### C DP, FT4, LIPR, TSH #### [facility] [address] [facility] [address] Press Smith Helper: Kojo Chiu MD Monocytes #/vol (Bld) 0.40 10*3/uL Normal 0.1-1.3 [facility] Comment on above: Performed By: #### C DP, FT4, LIPR, TSH #### [facility] [address] [facility] [address] Press [employer] Helper: Kojo Chiu MD Monocytes/100 WBC (Bld) 7 % Normal 1-7 [facility] Comment on above: Performed By: #### C DP, FT4, LIPR, TSH #### [facility] [address] [place] [address] Press Smith Helper: Kojo Chiu MD Neutrophil (Seg) 50 % Normal 36-66 [facility] Comment on above: Performed By: #### C DP, FT4, LIPR, TSH #### [facility] [address] [place] [address] Press Smith Helper: Kojo Chiu MD Platelet mean volume Entitic volume (Bld) 8.8 fL Normal 6.0-12.0 [facility] Comment on above: Performed By: #### C DP, FT4, LIPR, TSH #### [facility] [address] [facility] [address] Press Smith Helper: Kojo Chiu MD Platelets #/vol (Bld) 289 10*3/uL Normal 150-450 [facility] Comment on above: Performed By: #### C DP, FT4, LIPR, TSH #### [facility] [address] [facility] [address] Press [employer] Helper: Kojo Chiu MD RBC #/vol (Bld) 4.50 10*6/uL Normal 4.0-5.2 [facility] Comment on above: Performed By: #### C DP, FT4, LIPR, TSH #### [facility] [address] [facility] [place] [address] Press Smith Helper: Kojo Chiu MD WBC #/vol (Bld) 5.8 10*3/uL Normal 3.5-11.0 [facility] Comment on above: Performed By: #### C DP, FT4, LIPR, TSH #### [facility] [address] [facility] [address] Press [employer] Helper: Kojo Chiu MD Abs.Imm.Granulocyte NOT REPORTED Normal 0.00-0.30 [facility] Comment on above: Performed By: #### C DP, FT4, LIPR, TSH #### [facility] [address] [facility] [address] Press [employer] Helper: Kojo Chiu MD Auto Diff Performed NOT REPORTED Normal [facility] Comment on above: Performed By: #### C DP, FT4, LIPR, TSH #### [facility] [address] Press [employer] Helper: Kojo Chiu MD Immature granulocytes #/vol (Bld) NOT REPORTED Normal 0 [facility] Comment on above: Performed By: #### C DP, FT4, LIPR, TSH #### [facility] [address] Press Smith Helper: Kojo Chiu MD NRBC Automated NOT REPORTED Normal [facility] Comment on above: Performed By: #### C DP, FT4, LIPR, TSH #### [facility] [address] Press [employer] Helper: Kojo Chiu MD Platelets #/vol (Bld) NOT REPORTED Normal [facility] Comment on above: Performed By: #### C DP, FT4, LIPR, TSH #### [facility] [address] [facility] [address] Press Smith Helper: Kojo Chiu MD RBC morphology finding Nom (Bld) NOT REPORTED Normal [facility] Comment on above: Performed By: #### C DP, FT4, LIPR, TSH #### [facility] [address] [facility] [address] Press [employer] Helper: Kojo Chiu MD WBC Morphology NOT REPORTED Normal [facility] Comment on above: Performed By: #### C DP, FT4, LIPR, TSH #### [facility] [address] [facility] [address] Press [employer] Helper: Kojo Chiu MD Lipid Profileon 09-30-2018 Cholesterol in HDL mass conc 45 mg/dL Normal >40 [facility] Comment on above: Result Comment: HDL Guidelines: <40 Undesirable 40-59 Borderline >59 Desirable Performed By: #### C DP, FT4, LIPR, TSH #### [facility] [address] [facility] [address] Press [employer] Helper: Kojo Chiu MD Cholesterol in LDL mass conc 134 mg/dL High 0-130 [facility] Comment on above: Result Comment: LDL Guidelines: <100 Desirable 100-129 Near to/above Desirable 130-159 Borderline >159 Undesirable Direct (measured) LDL and calculated LDL are not interchangeable tests. Performed By: #### C DP, FT4, LIPR, TSH #### [facility] [address] [facility] [address] Press Smith Helper: Kojo Chiu MD Cholesterol mass conc 205 mg/dL High <200 [facility] Comment on above: Result Comment: Cholesterol Guidelines: <200 Desirable 200-240 Borderline >240 Undesirable Performed By: #### C DP, FT4, LIPR, TSH #### [facility] [address] [facility] [address] Press Smith Helper: Kojo Chiu MD Cholesterol.total/Ch olesterol in HDL mass ratio 4.6 {ratio} Normal <5 [facility] Comment on above: Performed By: #### C DP, FT4, LIPR, TSH #### [facility] [address] [facility] [address] Press Smith Helper: Kojo Chiu MD Triglyceride mass conc 131 mg/dL Normal <150 [facility] Comment on above: Result Comment: Triglyceride Guidelines: <150 Desirable 150-199 Borderline 200-499 High >499 Very high Based on AHA Guidelines for fasting triglyceride, March 2012. Performed By: #### C DP, FT4, LIPR, TSH #### [facility] [address] [facility] [address] Press Smith Helper: Kojo Chiu MD Cholesterol in VLDL mass conc NOT REPORTED Normal 07-18 [facility] Comment on above: Performed By: #### C DP, FT4, LIPR, TSH #### [facility] [address] [facility] [address] Press [employer] Helper: Kojo Chiu MD Thyroid Stim. Horm.on 2018 Thyrotropin Qn 0.04 m[IU]/L Low 0.30-5.00 [facility] Comment on above: Performed By: #### C DP, FT4, LIPR, TSH #### [facility] [address] [facility] [address] Press Smith Helper: Kojo Chiu MD Thyroxine, Freeon 09-30-2018 Thyroxine, Free 1.74 ng/dL High 0.93-1.70 [facility] Comment on above: Performed By: #### C DP, FT4, LIPR, TSH #### [facility] [address] [facility] [address] Press Smith Helper: Kojo Chiu MD XR ELBOW LEFT (MIN [...] Lang Francis MD 09/30/18 Final result Normal [facility] APTTon 09-29-2018 aPTT Coag time (Bld) 27.4 s Normal 23.2-34.[address] [facility] Comment on above: Performed By: #### C DP, TROPI, PTT, CMPX, SALI, PT #### [facility] [address] [place] [address] [place]. [place], [place] [address] Press Smith Helper: Aryan Cleveland MD Acetaminophenon 09-29-2018 Acetaminophen mass conc <5 Low 10-30 [facility] Comment on above: Performed By: #### A LCB, ACET #### [address] [place], [facility]83 Press [employer] Helper: Aryan Cleveland MD CBC with Diffon 09-29-2018 Abs. Basophil 0.09 k/uL Normal 0.00-0.20 [facility] Comment on above: Performed By: #### C DP, TROPI, PTT, CMPX, SALI, PT #### [address] [place], [place] [address] Press Smith Helper: Aryan Cleveland MD Abs.Imm.Granulocyte <0.03 Normal 0.00-0.30 [facility] Comment on above: Performed By: #### C DP, TROPI, PTT, CMPX, SALI, PT #### [facility] [address] [place] [address] Dr. [place], [place] [address] Press [employer] Helper: Aryan Cleveland MD Abs.Neutrophil (Seg) 5.50 k/uL Normal 1.50-8.[address] [facility] Comment on above: Performed By: #### C DP, TROPI, PTT, CMPX, SALI, PT #### [address] [place], [facility]83 Press Smith Helper: Aryan Cleveland MD Basophils/100 WBC (Bld) 1 % Normal 0-2 [facility] Comment on above: Performed By: #### C DP, TROPI, PTT, CMPX, SALI, PT #### [facility] [address] [place] [address] Dr. [place], [place] [address] Press [employer] Helper: Aryan Cleveland MD Eosinophils #/vol (Bld) 0.60 10*3/uL High 0.00-0.44 [facility] Comment on above: Performed By: #### C DP, TROPI, PTT, CMPX, SALI, PT #### [address] [place], [facility]83 Press Smith Helper: Aryan Cleveland MD Eosinophils/100 WBC (Bld) 6 % High 1-4 [facility] Comment on above: Performed By: #### C DP, TROPI, PTT, CMPX, SALI, PT #### [address] [place], [facility]83 Press Smith Helper: Aryan Cleveland MD Erythrocyte distribution width Ratio (RBC) 11.9 % Normal 11.8-14.4 [facility] Comment on above: Performed By: #### C DP, TROPI, PTT, CMPX, SALI, PT #### [address] [place], [facility]83 Press Smith Helper: Aryan Cleveland MD Hematocrit Volume Fraction (Bld) 38.6 % Normal 36.3-47.1 [facility] Comment on above: Performed By: #### C DP, TROPI, PTT, CMPX, SALI, PT #### [address] [place], [facility]83 Press Smith Helper: Aryan Cleveland MD Hemoglobin mass conc (Bld) 12.5 g/dL Normal 11.9-15.1 [facility] Comment on above: Performed By: #### C DP, TROPI, PTT, CMPX, SALI, PT #### [address] [place], [facility]83 Press Smith Helper: Aryan Cleveland MD Immature granulocytes #/vol (Bld) 0 % Normal 0 [facility] Comment on above: Performed By: #### C DP, TROPI, PTT, CMPX, SALI, PT #### [facility] [address] [place], [place] [address] Press Smith Helper: Aryan Cleveland MD Lymphocytes #/vol (Bld) 3.61 10*3/uL Normal 1.10-3.70 [facility] Comment on above: Performed By: #### C DP, TROPI, PTT, CMPX, SALI, PT #### [facility] [address] [place], [place] [address] Press Smith Helper: Aryan Cleveland MD Lymphocytes/100 WBC (Bld) 34 % Normal 24-43 [facility] Comment on above: Performed By: #### C DP, TROPI, PTT, CMPX, SALI, PT #### [facility] [address] [place], [place] [address] Press Smith Helper: Aryan Cleveland MD MCH Entitic mass (RBC) 29.7 pg Normal 25.2-33.5 [facility] Comment on above: Performed By: #### C DP, TROPI, PTT, CMPX, SALI, PT #### [address] [place], [facility]83 Press Smith Helper: Aryan Cleveland MD MCHC mass conc (RBC) 32.4 g/dL Normal 28.4-34.[address] [facility] Comment on above: Performed By: #### C DP, TROPI, PTT, CMPX, SALI, PT #### [facility] [address] [place], [facility]83 Press Smith Helper: Aryan Cleveland MD MCV Entitic volume (RBC) 91.7 fL Normal 82.6-102.9 [facility] Comment on above: Performed By: #### C DP, TROPI, PTT, CMPX, SALI, PT #### [facility] [address] [place] [id number] Press Smith Helper: Aryan Cleveland MD Monocytes #/vol (Bld) 0.85 10*3/uL Normal 0.10-1.20 [facility] Comment on above: Performed By: #### C DP, TROPI, PTT, CMPX, SALI, PT #### [facility] [address] [place] [id number] Press [employer] Helper: Aryan Cleveland MD Monocytes/100 WBC (Bld) 8 % Normal 3-12 [facility] Comment on above: Performed By: #### C DP, TROPI, PTT, CMPX, SALI, PT #### [facility] [address] [place] [id number] Press [employer] Helper: Aryan Cleveland MD Neutrophil (Seg) 51 % Normal 36-65 [facility] Comment on above: Performed By: #### C DP, TROPI, PTT, CMPX, SALI, PT #### [address] [place], [facility]83 Press Smith Helper: Aryan Cleveland MD NRBC Automated 0.0 per 100 WBC Normal 0.0 [facility] Comment on above: Performed By: #### C DP, TROPI, PTT, CMPX, SALI, PT #### [address] [place] [id number] [employer] Helper: Aryan Cleveland MD Platelet mean volume Entitic volume (Bld) 10.6 fL Normal 8.1-13.5 [facility] Comment on above: Performed By: #### C DP, TROPI, PTT, CMPX, SALI, PT #### [address] [place] [id number] [employer] Helper: Aryan Cleveland MD Platelets #/vol (Bld) 314 10*3/uL Normal 138-453 [facility] Comment on above: Performed By: #### C DP, TROPI, PTT, CMPX, SALI, PT #### [facility] [address] [place] [address] [place] [address] Press Smith Helper: Aryan Cleveland MD RBC #/vol (Bld) 4.21 10*6/uL Normal 3.95-5.11 [facility] Comment on above: Performed By: #### C DP, TROPI, PTT, CMPX, SALI, PT #### [address] [place] [address] Press Smith Helper: Aryan Cleveland MD WBC #/vol (Bld) 10.7 10*3/uL Normal 3.5-11.3 [facility] Comment on above: Performed By: #### C DP, TROPI, PTT, CMPX, SALI, PT #### [address] [place], [facility]83 Press [employer] Helper: Aryan Cleveland MD Auto Diff Performed NOT REPORTED Normal [facility] Comment on above: Performed By: #### C DP, TROPI, PTT, CMPX, SALI, PT #### [address] [place], [facility]83 Press Smith Helper: Aryan Cleveland MD Platelets #/vol (Bld) NOT REPORTED Normal [facility] Comment on above: Performed By: #### C DP, TROPI, PTT, CMPX, SALI, PT #### [address] [place], [facility]83 Press [employer] Helper: Aryan Cleveland MD RBC morphology finding Nom (Bld) NOT REPORTED Normal [facility] Comment on above: Performed By: #### C DP, TROPI, PTT, CMPX, SALI, PT #### [address] [place], [facility]83 Press [employer] Helper: Aryan Cleveland MD WBC Morphology NOT REPORTED Normal [facility] Comment on above: Performed By: #### C DP, TROPI, PTT, CMPX, SALI, PT #### [address] [place] [address] Press [employer] Helper: Aryan Cleveland MD Comp Metabolic Pr/rfx MGon 0 09-29-2018 (cont.) Normal [facility] Comment on above: Result Comment: Aver age GFR for 20-29 years old: 116 mL/min/1.73sq m Chronic Kidney Disease: <60 mL/min/1.73sq m Kidney failure: <15 mL/min/1.73sq m eGFR calculated using average adult body mass. Additional eGFR calculator available at: http://www.[employer]/multiple_crcl_2012.htm Performed By: #### C DP, TROPI, PTT, CMPX, SALI, PT #### [facility] [address] [place] [address] Press [employer] Helper: Aryan Cleveland MD Albumin mass conc 3.7 g/dL Normal 3.5-5.2 [facility] Comment on above: Performed By: #### C DP, TROPI, PTT, CMPX, SALI, PT #### [facility] [address] [place] [address] Press [employer] Helper: Aryan Cleveland MD Albumin/Globulin mass ratio 1.1 {ratio} Normal 1.0-2.5 [facility] Comment on above: Performed By: #### C DP, TROPI, PTT, CMPX, SALI, PT #### [facility] [address] [place] [address] Press [employer] Helper: Aryan Cleveland MD Alkaline Phos 57 U/L Normal 35-104 [facility] Comment on above: Performed By: #### C DP, TROPI, PTT, CMPX, SALI, PT #### [facility] [address] [place] [address] Press Smith Helper: Aryan Cleveland MD ALT enzyme act/vol 22 U/L Normal 5-33 [facility] Comment on above: Performed By: #### C DP, TROPI, PTT, CMPX, SALI, PT #### [facility] [address] [place] [address] Press Smith Helper: Aryan Cleveland MD Anion gap molar conc 12 mmol/L Normal 9-[address] [facility] Comment on above: Performed By: #### C DP, TROPI, PTT, CMPX, SALI, PT #### [facility] [address] [place] [address] Press Smith Helper: Aryan Cleveland MD AST enzyme act/vol 12 U/L Normal <32 [facility] Comment on above: Performed By: #### C DP, TROPI, PTT, CMPX, SALI, PT #### [facility] [address] [place] [address] Press Smith Helper: Aryan Cleveland MD Bilirubin Ql (U) 0.36 mg/dL Normal 0.3-1.2 [facility] Comment on above: Performed By: #### C DP, TROPI, PTT, CMPX, SALI, PT #### [facility] [address] [place] [address] Press Smith Helper: Aryan Cleveland MD BUN/CRE Ratio 11 Normal 9-20 [facility] Comment on above: Performed By: #### C DP, TROPI, PTT, CMPX, SALI, PT #### [address] [place] [address] Press Smith Helper: Aryan Cleveland MD Calcium mass conc 9.0 mg/dL Normal 8.6-10.4 [facility] Comment on above: Performed By: #### C DP, TROPI, PTT, CMPX, SALI, PT #### [facility] [address] [place] [address] Press Smith Helper: Aryan Cleveland MD Chloride molar conc 102 mmol/L Normal 98-107 [facility] Comment on above: Performed By: #### C DP, TROPI, PTT, CMPX, SALI, PT #### [facility] [address] [place], [place] [id number] Press [employer] Helper: Aryan Cleveland MD CO2 molar conc 25 mmol/L Normal 20-31 [facility] Comment on above: Performed By: #### C DP, TROPI, PTT, CMPX, SALI, PT #### [facility] [address] [place], [place] [id number] Press [employer] Helper: Aryan Cleveland MD Creatinine mass conc 0.74 mg/dL Normal 0.50-0.[address] [facility] Comment on above: Performed By: #### C DP, TROPI, PTT, CMPX, SALI, PT #### [facility] [address] [place], [place] [id number] Press [employer] Helper: Aryan Cleveland MD GFR, Amer >60 Normal >60 [facility] Comment on above: Performed By: #### C DP, TROPI, PTT, CMPX, SALI, PT #### [facility] [address] [place], [place] [id number] Press [employer] Helper: Aryan Cleveland MD GFR,non Amer >60 Normal >[address] [facility] Comment on above: Performed By: #### C DP, TROPI, PTT, CMPX, SALI, PT #### [facility] [address] [place], [place] [id number] Press [employer] Helper: Aryan Cleveland MD Glucose mass conc 87 mg/dL Normal 70-99 [facility] Comment on above: Performed By: #### C DP, TROPI, PTT, CMPX, SALI, PT #### [facility] [address] [place], [place] [id number] Press Smith Helper: Aryan Cleveland MD Potassium molar conc 3.7 mmol/L Normal 3.7-5.[address] [facility] Comment on above: Performed By: #### C DP, TROPI, PTT, CMPX, SALI, PT #### [facility] [address] [place], [place] [id number] Press [employer] Helper: Aryan Cleveland MD Protein mass conc 7.0 g/dL Normal 6.4-8.3 [facility] Comment on above: Performed By: #### C DP, TROPI, PTT, CMPX, SALI, PT #### [facility] [address] [place] [address] Press Smith Helper: Aryan Cleveland MD Sodium molar conc 139 mmol/L Normal 135-144 [facility] Comment on above: Performed By: #### C DP, TROPI, PTT, CMPX, SALI, PT #### [facility] [address] [place] [address] Press Smith Helper: Aryan Cleveland MD Staging: Normal [facility] Comment on above: Result Comment: Stag e 1: Some kidney damage normal GFR Stage 2: Mild kidney damage GFR 60-89 Stage 3: Moderate kidney damage GFR 30-59 Stage 4: Severe kidney damage GFR 15-29 Stage 5: Severe kidney damage GFR <15 ESRD - chronic treatment by dialysis or transplant Performed By: #### C DP, TROPI, PTT, CMPX, SALI, PT #### [facility] [address] [place], [facility]83 Press Smith Helper: Aryan Cleveland MD Urea nitrogen mass conc 8 mg/dL Normal 6-20 [facility] Comment on above: Performed By: #### C DP, TROPI, PTT, CMPX, SALI, PT #### [facility] [address] [place], [facility] Press Smith Helper: Aryan Cleveland MD Drug Scr, Abuse, Uron 2018 Amphetamine(s),Ur Negative Normal NEG [facility] Comment on above: Performed By: #### C DP, TROPI, PTT, CMPX, SALI, PT #### [facility] [address] [place] [address] Press Smith Helper: Aryan Cleveland MD Barbiturate(s),Ur Negative Normal NEG [facility] Comment on above: Performed By: #### C DP, TROPI, PTT, CMPX, SALI, PT #### [facility] [address] [place] [address] Press Smith Helper: Aryan Cleveland MD Base excess Calculated molar conc (Bld) Negative Normal [facility] Comment on above: Performed By: #### C DP, TROPI, PTT, CMPX, SALI, PT #### [address] [place], [place] [address] Press Smith Helper: Aryan Cleveland MD Benzodiazepine(s) Positive Abnormal NEG [facility] Comment on above: Performed By: #### C DP, TROPI, PTT, CMPX, SALI, PT #### [address] [place], [facility]83 Press Smith Helper: Aryan Cleveland MD Buprenorphrine, Ur Negative Normal [facility] Comment on above: Performed By: #### C DP, TROPI, PTT, CMPX, SALI, PT #### [address] [place], [place] [address] Press Smith Helper: Aryan Cleveland MD Cannabinoid(s),Ur Positive Abnormal NEG [facility] Comment on above: Performed By: #### C DP, TROPI, PTT, CMPX, SALI, PT #### [address] [place], [place] [address] Press Smith Helper: Aryan Cleveland MD Methadone Ql (U) Negative Normal NEG [facility] Comment on above: Performed By: #### C DP, TROPI, PTT, CMPX, SALI, PT #### [address] [place], [facility]83 Press Smith Helper: Aryan Cleveland MD Methamphetamine, Ur Negative Normal [facility] Comment on above: Performed By: #### C DP, TROPI, PTT, CMPX, SALI, PT #### [address] [place], [facility]83 Press Smith Helper: Aryan Cleveland MD Opiate(s), Ur Negative Normal NEG [facility] Comment on above: Performed By: #### C DP, TROPI, PTT, CMPX, SALI, PT #### [facility] [address] [place], [place] [id number] Press [employer] Helper: Aryan Cleveland MD Oxycodone, Urine Negative Normal NEG [facility] Comment on above: Performed By: #### C DP, TROPI, PTT, CMPX, SALI, PT #### [address] [place], [place] [phone] Press [employer] Helper: Aryan Cleveland MD Phencyclidine, Ur Negative Normal NEG [facility] Comment on above: Performed By: #### C DP, TROPI, PTT, CMPX, SALI, PT #### [address] [place], [place] [phone] Press Smith Helper: Aryan Cleveland MD Protein mass conc (U) Negative [facility] Comment on above: Performed By: #### C DP, TROPI, PTT, CMPX, SALI, PT #### [address] [place], [place] [phone] Press Smith Helper: Aryan Cleveland MD Tricyclic antidepressants Screen Ql (U) Negative [facility] Comment on above: Result Comment: Drug screen results are to be used for medical purposes only. All positive results are unconfirmed. Testing for employment or legal uses should be sent to a reference laboratory for confirmation. Performed By: #### C DP, TROPI, PTT, CMPX, SALI, PT #### [address] [place], [place] [phone] Press [employer] Helper: Aryan Cleveland MD Interpretive Info NOT REPORTED [facility] Comment on above: Performed By: #### C DP, TROPI, PTT, CMPX, SALI, PT #### [address] [place] [address] Press Smith Helper: Aryan Cleveland MD MDMA, Urine NOT REPORTED Normal NEG [facility] Comment on above: Performed By: #### C DP, TROPI, PTT, CMPX, SALI, PT #### [facility] [address] [place], [place] [phone] Press [employer] Helper: Aryan Cleveland MD Ethanol Alcoholon 09-29-2018 Ethanol mass conc mg/dL Normal <10 [facility] Comment on above: Performed By: #### A LCB, ACET #### [facility] [address] [place] [id number] Press Smith Helper: Aryan Cleveland MD Ethanol percent <0.010 Normal <0.010 [facility] Comment on above: Result Comment: NOTE : NEW REFERENCE RANGE Performed By: #### A LCB, ACET #### [facility] [address] [place], [place] [phone] Press Smith Helper: Aryan Cleveland MD HCG, ,Urineon 09-29 HCG.beta subunit ( test) Ql (U) Negative Normal NEG [facility] Comment on above: Result Comment: Spec imens with hCG levels near the threshold of the test (25 mIU/mL) may give a negative or indeterminate result. In such cases, another test should be performed with a new specimen in 48-72 hours. If early is suspected clinically in this setting, correlation with quantitative serum b-hCG level is suggested. [facility] has confirmed the use of plasma for this test. This has not been cleared or approved by the U.S. Food and Drug Administration. The FDA has determined that such clearance is not necessary. Performed By: #### U A, RIVAS, UHCG #### [facility] [address] [place] [address] Press Smith Helper: Aryan Cleveland MD PTon 09-29-2018 INR Coag RelTime (PPP) 1.0 {INR} Normal 0.9-1.2 [facility] Comment on above: Performed By: #### C DP, TROPI, PTT, CMPX, SALI, PT #### [facility] [address] [place], [place] [id number] Press [employer] Helper: Aryan Cleveland MD Prothrombin time (PT) Coag time (PPP) 10.5 s Normal 9.7-12.2 [facility] Comment on above: Performed By: #### C DP, TROPI, PTT, CMPX, SALI, PT #### [facility] [address] [place], [facility]83 Press Smith Helper: Aryan Cleveland MD Salicylateon 09-29-2018 Salicylate <1 Low 3-10 [facility] Comment on above: Performed By: #### C DP, TROPI, PTT, CMPX, SALI, PT #### [facility] [address] [place], [facility]83 Press Smith Helper: Aryan Cleveland MD Thyroid Stim. Horm.on 2018 Thyrotropin Qn 0.04 m[IU]/L Low 0.30-5.00 [facility] Comment on above: Performed By: #### T SH #### [facility] [address] [place], [facility]83 Press Smith Helper: Aryan Cleveland MD Troponinon 09-29-2018 Troponin I.cardiac mass conc ng/mL Normal <0.03 [facility] Comment on above: Result Comment: Trop onin T results cannot be compared to Troponin-I results. Performed By: #### C DP, TROPI, PTT, CMPX, SALI, PT #### [facility] [address] [place], [place] [phone] Press [employer] Helper: Aryan Cleveland MD Troponin I.cardiac mass conc Normal [facility] Comment on above: Result Comment: Refe [...] DP, TROPI, PTT, CMPX, SALI, PT #### [facility] [address] [place] [address] Press Smith Helper: Aryan Cleveland MD Troponin I.cardiac mass conc NOT REPORTED Normal 0-14 [facility] Comment on above: Performed By: #### C DP, TROPI, PTT, CMPX, SALI, PT #### [facility] [address] [place] [address] Press Smith Helper: Aryan Cleveland MD Urinalysis, Routineon 2018 Acetoacetic Acid,Ur Negative Normal [facility] Comment on above: Performed By: #### C DP, TROPI, PTT, CMPX, SALI, PT #### [address] [place] [address] Press Smith Helper: Aryan Cleveland MD Bilirubin, SemiQt,Ur Negative Normal [facility] Comment on above: Performed By: #### C DP, TROPI, PTT, CMPX, SALI, PT #### [address] [place] [address] Press Smith Helper: Aryan Cleveland MD Color Nom (U) YELLOW Normal [facility] Comment on above: Performed By: #### C DP, TROPI, PTT, CMPX, SALI, PT #### [facility] [address] [place] [address] Press Smith Helper: Aryan Cleveland MD Glucose,Semi-qnt,Ur Negative Normal [facility] Comment on above: Performed By: #### C DP, TROPI, PTT, CMPX, SALI, PT #### [address] [place], [place] [address] Press [employer] Helper: Aryan Cleveland MD Hemoglobin, Ur Negative Normal [facility] Comment on above: Performed By: #### C DP, TROPI, PTT, CMPX, SALI, PT #### [facility] [address] [place], [place] [address] Press Smith Helper: Aryan Cleveland MD Leuckocyte Esterase Negative Normal NEG [facility] Comment on above: Performed By: #### C DP, TROPI, PTT, CMPX, SALI, PT #### [address] [place], [place] [address] Press Smith Helper: Aryan Cleveland MD Nitrite,Ur Negative Normal NEG [facility] Comment on above: Performed By: #### C DP, TROPI, PTT, CMPX, SALI, PT #### [address] [place], [place] [address] Press Smith Helper: Aryan Cleveland MD PH,Ur 6.5 Normal 5.0-9.0 [facility] Comment on above: Performed By: #### C DP, TROPI, PTT, CMPX, SALI, PT #### [address] [place], [place] [address] Press Smith Helper: Aryan Cleveland MD Protein mass conc (U) Negative Normal NEG [facility] Comment on above: Performed By: #### C DP, TROPI, PTT, CMPX, SALI, PT #### [address] [place], [place] [address] Press Smith Helper: Aryan Cleveland MD Spec. [place],Ur 1.010 Normal 1.010-1.020 [facility] Comment on above: Performed By: #### C DP, TROPI, PTT, CMPX, SALI, PT #### [address] [place], [facility]83 Press Smith Helper: Aryan Cleveland MD Turbidity CLEAR Normal CLEAR [facility] Comment on above: Performed By: #### C DP, TROPI, PTT, CMPX, SALI, PT #### [address] [place], [place] [phone] Press Smith Helper: Aryan Cleveland MD Urobilinogen,Ur Normal Normal NORM [facility] Comment on above: Performed By: #### C DP, TROPI, PTT, CMPX, SALI, PT #### [facility] [address] [place] [address] Press Smith Helper: Aryan Cleveland MD Comment NOT REPORTED Normal [facility] Comment on above: Performed By: #### C DP, TROPI, PTT, CMPX, SALI, PT #### [facility] [address] [place] [address] Press Smith Helper: Aryan Cleveland MD ED Clinical Summaryon 2018 ED Clinical Summary [address] [address] ED Clinical Summary Person Information Name: Lana Carrillo [facility] Age: 28 Years : 1990 Sex: Female PCP: Malou MCBRIDE, Xochilt Coronel Marital Status: Race: White Ethnicity: Not or Language: Nepali Visit Reason: Ear pain; Ear drainage Acuity: 5 Enc Type: Emergency Med Service: Emergency Medicine Arrival: 09/10/2018 18:52:00 Discharge: 09/10/2018 19:20:00 LOS: 000 00:28 Checkin: 09/10/2018 18:52:00 Checkout: 09/10/2018 19:20:00 Dispo Type: Home or Self Care Address: [address] [place] [address] Provider Notes: Diagnosis: 1:Right otitis media; 2:Right [...] Med List: New Medications [facility], [address] [place], [place] [id number], [phone] ciprofloxacin-dexameth asone otic (Ciprodex 0.3%-0.1% otic suspension) [...] day. Last Dose: ___ [facility] [facility], [address] [place], [place] [id number], [phone] ciprofloxacin-dexameth asone otic (Ciprodex 0.3%-0.1% otic suspension) [...] (given by mouth) every day. norethindrone-ethinyl estradiol (07/08 oral tablet) 1 Tabs [...] or other concerns With: Address: When: Xochilt Westfall [address] [place] [address], [address] [place] [phone] Business (1) Discharge Orders: Discharge Patient 09/10/18 19:12:00 EDT, Discharge to Home, Self Patient Education Information: EXTERNAL EAR INFECTION (Adult); OTITIS MEDIA, Abx Tx (Adult) [facility] Poison Help line: . [facility] Hotline: [place] Tobacco Quit Line: [place], [place]) [address]: [phone] [place], [place]) [address]: [phone] [facility] [address] [facility]. [place], [place]: [phone] [facility] ED Note-Physicianon 09-11-19 19 ED Note-Physician [...] no accessory muscle use, no stridor] Skin: [[place], warm, dry, no injury, no rashes] Neuro: [...] mL, 0 Refill(s), 09/17/18 19:10:00 EDT, Pharmacy: [facility] doxycycline, 100 mg, Oral, Tab, Once, First Dose: 09/10/18 19:08:00 EDT, Stop Date: 09/10/18 19:08:00 EDT, STAT, Dispense From Location: [facility], Otitis media doxycycline, 1 caps, Oral, BID, X 10 days, # 20 caps, 0 Refill(s), 09/20/18 19:10:00 EDT, Pharmacy: [facility]. Discharge Patient Problem List/Past Medical History [...] Jaime Logan PA-C 09/10/18 19:54 EDT Normal [facility] Ambulatory Patient Education on 07-25-2018 Ambulatory Patient Education Patient Education Materials Name: Lana Carrillo Current Date: 07/25/2018 15:33:58 [facility]ael[facility] : 1990 The following sheet(s) are the [...] Rest the jaw by avoiding crunchy or jzdk-um-[id number] foods. Don't eat hard or sticky candies. [...] as directed by your healthcare provider ? [id number] [employer]. [address] [place] [address]. All rights reserved. This information is not intended as a substitute for professional medical care. Always follow your healthcare professional's instructions. Normal [facility] Otolaryngology Office/Clinic Noteon 07-25-2018 Otolaryngology Office/Clinic Note [...] TMJ arthralgia Plan: I'm giving the patient [place]. She apparently had some itching with the [...] tablet, 200 mcg, 1 tabs, Oral, Daily [place] 5 mg-325 mg oral tablet, 1 tabs, Oral, q4hr, PRN Allergies amoxicillin (Swelling) codeine (Swelling) Social History Alcohol Never Tobacco Never (less than 100 in lifetime) Use:. Family History Patient was adopted Diagnostic Results No qualifying data available. No qualifying data available. No qualifying data available. No qualifying data available. Electronically signed by Beulah Yarbrough MD 07/25/18 15:30 EST Normal [facility] Otolaryngology Consultationo n 03-16-2018 Otolaryngology Consultation Chief [...] Beulah Yarbrough MD 03/27/2018 14:04 EDT Normal [facility] Vital Signs Date Time Vital Sign Value Performing Clinician Facility 07-11-2023 11:45-0500 Body height 165.1 cm Kita Vargas Other [facility] Other 07-11-2023 11:45-0500 Body mass index (BMI) [Ratio] 39.93 kg/m2 Kita Vargas Other [facility] Other 07-11-2023 11:45-0500 Body weight 108.86 kg Kita Vargas Other [facility] Other 07-11-2023 11:45-0500 Diastolic blood pressure 82 mm[Hg] Kita Vargas Other [facility] Other 07-11-2023 11:45-0500 Systolic blood pressure 128 mm[Hg] Kita Vargas Other [facility] Other Encounters Encounter Date Encounter Type Care Provider Facility Start: 07-11-2023 End: 07-11-2023 ambulatory Kita Vargas Other [facility] Other Start: 07-11-2023 Office outpatient vi sit 15 minutes Kita Vargas [facility] Start: 08-06-2021 Gynecological examination normal Kita Vargas Other [facility] Other Start: 11-10-2020 End: 11-11-[address] REBECCA JONES Facility:[facility] Start: 05-06-2020 End: 05-07-[address] KITA VARGAS Facility:[facility] Start: 04-25-[address] KITA VARGAS Facil ity:[facility] Start: 09-29-2018 End: 10-05-2018 Evaluation and management of inpatient [facility] Start: 09-28-2018 End: 09-29-2018 Emergency department patient visit [facility] Start: 09-10-2018 End: 09-10-2018 Emergency department patient visit Xochilt Westfall Facility:[facility] Start: 07-25-2018 End: 07-26-2018 Patient encounter procedure BEULAH YARBROUGH Facility:[facility] Start: 04-09-2018 Patient encounter procedure Madiha Barreto Facility:[facility] Start: 03-16-2018 End: 03-17-2018 Patient encounter procedure BEULAH YARBROUGH Facility:[facility] Procedures Date Procedure Procedure Detail Performing Clinician Start: 10-04-2018 DISCHARGE PATIENT DIMA CHRISTIAN Start: 09-30-2018 Radex elbow complete minimum 3 views [facility] Start: 09-30-2018 Assay of free thyroxine [facility] Start: 09-30-2018 Assay of thyroid stimulating hormone [facility]sh [facility] Start: 09-30-2018 Blood count complete auto&auto difrntl wbc [facility] Start: 09-30-2018 Lipid panel [facility] Start: 09-29-2018 IP CONSULT TO RECYCLE DRIVER AL [facility] Start: 09-29-2018 [facility] Start: 09-29-2018 FULL CODE [facility] Start: 09-29-2018 IP CONSULT [facility] Start: 09-29-2018 MONITOR [facility] Start: 09-29-2018 PATIENT STATUS (DIRECT) [facility] Start: 09-29-2018 TOBACCO CESSATION EDUCATION [facility] Start: 09-29-2018 VITAL SIGNS [facility] Start: 09-29-2018 Drug screen class list [...] VARLAS Start: 09-29-2018 Assay of troponin quantitative PANTJAD CARPENTER Start: 09-29-2018 Blood count complete auto&auto difrntl wbc [facility] Start: 09-29-2018 Prothrombin time JOANNA CARPENTER Start: 09-29-2018 Thromboplastin time partial plasma/whole blood SUAD CARPENTER screening Kita cisneros Other screening Kita cisneros Other Contraception care education Kitadelicia Vargas Other Depression screening Kita Alicia Other Diabetes mellitus screening Kita Alicia Other visit Kita Alicia Other Payers Date Payer Category Payer Private Health Insurance [id number] 2014 Unknown [id number] 1999 Private Health Insurance 1990 Unknown [id number] 2.16.8 [id number] 1990 Unknown [id number] 2.16.8 [id number] 1990 Unknown [id number] 2.16.8 [id number] 1990 Unknown [id number] 2.16.8 [id number] 1990 Unknown [id number] 2.16.8 [id number] 1990 Unknown [id number] 2.16.8 [id number] 1990 Unknown [id number] 2.16.84 [id number] 1990 Unknown [id number] 2.16.84 [id number] 1990 Unknown [id number] 2.16.84 [id number] 1959 Self-pay [id number] 1959 Unknown [id number] Medicaid [id number] 2. [id number] Social History Date Type Detail Facility Sex Assigned At [facility] Other Evaluation note 07-11-2023 Note Date & Type Note Facility 07-11-2023 Evaluation note Encounter Date Diagnosis Assessment Notes Jun, Hypothyroidism, unspecified (ICD-10 - E03.9) Due for labs in 2-3 months. Will increase dose based on the lab results and her present fatigue Jun, Binge eating disorder (ICD-10 - F50.81) start vyvanse. Jun, Moderate persistent asthma with acute exacerbation (ICD-10 - J45.41) proair and flovent sent in. wheezes each night. Jun, Adult ADHD (ICD-10 - F90.9) start CCM [facility] Other History general Narrative - Reported Note [...] : Active, Surgical History curtis gtz 2020 [facility] Other Summary Purpose Family History No Family History Records FoundNo Family History Records FoundNo Family History Records FoundNo Family History Records FoundNo Family History Records Found Advance Directives No Advanced Directives Records FoundNo Advanced Directives Records FoundNo Advanced Directives Records FoundNo Advanced Directives Records FoundNo Advanced Directives Records Found Additional Source Comments INFORMATION SOURCE (unrecogn ized section and content) DATE CREATED AUTHOR 09/12/2018 [facility] DATE CREATED AUTHOR AUTHOR'S ORGANIZ ATION 09/30/2018 [facility] DATE CREATED AUTHOR AUTHOR'S ORGANIZ ATION 10/05/2018 [facility] DATE CREATED AUTHOR AUTHOR'S ORGANIZ ATION 11/14/2020 [facility] DATE CREATED AUTHOR AUTHOR'S ORGANIZ ATION 09/23/2021 [facility] REASON FOR VISIT (unrecogniz ed section and [...] BE BASED ON THE PRIMARY CLINICAL RECORDS. [employer] [facility]. provides no warranty or guarantee of the accuracy or completeness of information in this document.
[2024-08-05 17:21] LABS: Thyroid Stimulating Hormone 19.832 uIU/mL (0.358-3.740)
[2024-08-05 18:03] LABS: Free T4 0.99 ng/dL (0.76-1.46)
== END 2024-08-05 16:45 | disposition home or self-care (01) ==
LOC: LAB 16:44
PROVIDERS: PCP Family Medicine; Visit Provider Family Medicine
DX: E03.9 Hypothyroidism, unspecified (principal)
CPT/HCPCS: 36415; 84439; 84443

== ENCOUNTER 2024-08-20 18:40 | Outpatient (REF) | payer OTHER, SELFPAY ==
--- OUTSIDE RECORDS SUMMARY | 2024-08-20 18:44 | XMS_ITS | CCD ---
Author Organization [facility] Care Team Providers Care Dermatology Nurse Practitioner Name Role Phone BEULAH YARBROUGH Attending Unavailable [...] Doxycycline (1 source) Doxycycline Drug Allergy [facility] Opioid Agonists (1 source) Codeine Drug Allergy 06-19-19 [facility] Penicillins (antibiotic) (1 source) Amoxicillin Drug Allergy 03-28-20 13 [facility] (2 sources) Amoxicillin; Translations: [amoxicillin] Drug Allergy [facility] (2 sources) Codeine; Translations: [codeine] Drug Allergy 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 Performed By: #### U HCG #### [facility] [address] [place] [address] COVID-19 FRMCon 09-14-2021 SARS-CoV-2 (COVID-19) RNA ISMAEL+probe Ql (Unsp spec) Negative Normal Negative [facility] Comment on above: Order Comment: Healt hcare Worker?: N Result Comment: Testing for SARS-CoV-2 by RT-PCR This test was developed and its performance characteristics determined by [employer] ([employer]) and validated at the [facility]. This test has not been [...] is terminated or revoked sooner. PERFORMED BY: [address] [place] [address] PATHOLOGIST LIFE SCIENCES INSTRUCTOR JUAN GRAY M.D. Performed By: #### C OVID 19 [facility] #### [place] [id number] [facility] XR ANKLE LT MIN 3 Von 2020 XR ANKLE LT MIN 3 V EXAM: XR ANKLE LT TX N 3 V, XR FOOT LT MIN [...] ED DOW Date: 2020-11-10 22:50 Normal [facility] FREE T4on 05-06-2020 Free T4 [Mass/Vol] 1.70 ng/dL Normal 0.78-2.19 [facility] Comment on above: Performed By: #### F T4 #### [facility] [address] [place] [address] Zahira Caceres TSHon 05-06-2020 TSH 0.028 uIU/mL Critically low 0.470-4.680 [facility] Comment on above: Performed By: #### T SH #### [facility] [address] [place] [address] Zahira Nicki TSH RANGE SEE BELOW Normal [facility] Comment on above: Result Comment: <0.3 4 UIU/ml HYPERTHYROID 0.34-5.60 UIU/ml EUTHYROID >5.60 UIU/ml HYPOTHYROID Performed By: #### T SH #### [facility] [address] [place] [address] Zahira Caceres CBC with Diffon 09-30-2018 Abs. Basophil 0.00 k/uL Normal 0.0-0.2 [facility] Comment on above: Performed By: #### C DP, FT4, LIPR, TSH #### [facility] [address] [facility] [place] [address] Student Teaching Coordinator: Kojo Chiu MD Abs.Neutrophil (Seg) 2.90 k/uL Normal 1.3-9.1 [facility] Comment on above: Performed By: #### C DP, FT4, LIPR, TSH #### [facility] [address] [facility] [place], [place] [id number] Student Teaching Coordinator: Kojo Chiu MD Basophils/100 WBC (Bld) 1 % Normal 0-2 [facility] Comment on above: Performed By: #### C DP, FT4, LIPR, TSH #### [facility] [address] [facility] [place] [address] Student Teaching Coordinator: Kojo Chiu MD Eosinophils #/vol (Bld) 0.50 10*3/uL High 0.0-0.4 [facility] Comment on above: Performed By: #### C DP, FT4, LIPR, TSH #### [facility] [address] [facility] [place] [address] Student Teaching Coordinator: Kojo Chiu MD Eosinophils/100 WBC (Bld) 8 % High 0-4 [facility] Comment on above: Performed By: #### C DP, FT4, LIPR, TSH #### [facility] [place] [place] [address] Student Teaching Coordinator: Kojo Chiu MD Erythrocyte distribution width Ratio (RBC) 12.4 % Normal 11.5-14.9 [facility] Comment on above: Performed By: #### C DP, FT4, LIPR, TSH #### [facility] [place] [address] Student Teaching Coordinator: Kojo Chiu MD Hematocrit Volume Fraction (Bld) 40.5 % Normal 36-46 [facility] Comment on above: Performed By: #### C DP, FT4, LIPR, TSH #### [facility] [place] [address] Student Teaching Coordinator: Kojo Chiu MD Hemoglobin mass conc (Bld) 13.9 g/dL Normal 12.0-16.0 [facility] Comment on above: Performed By: #### C DP, FT4, LIPR, TSH #### [facility] [place] [address] Student Teaching Coordinator: Kojo Chiu MD Lymphocytes #/vol (Bld) 2.00 10*3/uL Normal 1.0-4.8 [facility] Comment on above: Performed By: #### C DP, FT4, LIPR, TSH #### [facility] [address] [facility] [place] [address] Student Teaching Coordinator: Kojo Chiu MD Lymphocytes/100 WBC (Bld) 34 % Normal 24-44 [facility] Comment on above: Performed By: #### C DP, FT4, LIPR, TSH #### [facility] [address] [facility] [place] [address] Student Teaching Coordinator: Kojo Chiu MD MCH Entitic mass (RBC) 30.8 pg Normal 26-34 [facility] Comment on above: Performed By: #### C DP, FT4, LIPR, TSH #### [facility] [place] [address] Student Teaching Coordinator: Kojo Chiu MD MCHC mass conc (RBC) 34.2 g/dL Normal 31-37 [facility] Comment on above: Performed By: #### C DP, FT4, LIPR, TSH #### [facility] [place] [address] Student Teaching Coordinator: Kojo Chiu MD MCV Entitic volume (RBC) 89.9 fL Normal 80-100 [facility] Comment on above: Performed By: #### C DP, FT4, LIPR, TSH #### [facility] [address] [facility] [place] [address] Student Teaching Coordinator: Kojo Chiu MD Monocytes #/vol (Bld) 0.40 10*3/uL Normal 0.1-1.3 [facility] Comment on above: Performed By: #### C DP, FT4, LIPR, TSH #### [facility] [address] [facility] [place] [address] Student Teaching Coordinator: Kojo Chiu MD Monocytes/100 WBC (Bld) 7 % Normal 1-7 [facility] Comment on above: Performed By: #### C DP, FT4, LIPR, TSH #### [facility] [address] [place] [address] Student Teaching Coordinator: Kojo Chiu MD Neutrophil (Seg) 50 % Normal 36-66 [facility] Comment on above: Performed By: #### C DP, FT4, LIPR, TSH #### [facility] [address] [place] [address] Student Teaching Coordinator: Kojo Chiu MD Platelet mean volume Entitic volume (Bld) 8.8 fL Normal 6.0-12.0 [facility] Comment on above: Performed By: #### C DP, FT4, LIPR, TSH #### [facility] [address] [facility] [place] [address] Student Teaching Coordinator: Kojo Chiu MD Platelets #/vol (Bld) 289 10*3/uL Normal 150-450 [facility] Comment on above: Performed By: #### C DP, FT4, LIPR, TSH #### [facility] [address] [facility] [place] [address] Student Teaching Coordinator: Kojo Chiu MD RBC #/vol (Bld) 4.50 10*6/uL Normal 4.0-5.2 [facility] Comment on above: Performed By: #### C DP, FT4, LIPR, TSH #### [facility] [address] [facility] [place] [address] Student Teaching Coordinator: Kojo Chiu MD WBC #/vol (Bld) 5.8 10*3/uL Normal 3.5-11.0 [facility] Comment on above: Performed By: #### C DP, FT4, LIPR, TSH #### [facility] [address] [facility] [place] [address] Student Teaching Coordinator: Kojo Chiu MD Abs.Imm.Granulocyte NOT REPORTED Normal 0.00-0.30 [facility] Comment on above: Performed By: #### C DP, FT4, LIPR, TSH #### [facility] [address] [facility] [place] [address] Student Teaching Coordinator: Kojo Chiu MD Auto Diff Performed NOT REPORTED Normal [facility] Comment on above: Performed By: #### C DP, FT4, LIPR, TSH #### [facility] [place] [address] Student Teaching Coordinator: Kojo Chiu MD Immature granulocytes #/vol (Bld) NOT REPORTED Normal 0 [facility] Comment on above: Performed By: #### C DP, FT4, LIPR, TSH #### [facility] [place] [address] Student Teaching Coordinator: Kojo Chiu MD NRBC Automated NOT REPORTED Normal [facility] Comment on above: Performed By: #### C DP, FT4, LIPR, TSH #### [facility] [place] [address] Student Teaching Coordinator: Kojo Chiu MD Platelets #/vol (Bld) NOT REPORTED Normal [facility] Comment on above: Performed By: #### C DP, FT4, LIPR, TSH #### [facility] [address] [facility] [place] [address] Student Teaching Coordinator: Kojo Chiu MD RBC morphology finding Nom (Bld) NOT REPORTED Normal [facility] Comment on above: Performed By: #### C DP, FT4, LIPR, TSH #### [facility] [address] [facility] [place] [address] Student Teaching Coordinator: Kojo Chiu MD WBC Morphology NOT REPORTED Normal [facility] Comment on above: Performed By: #### C DP, FT4, LIPR, TSH #### [facility] [address] [facility] [place] [address] Student Teaching Coordinator: Kojo Chiu MD Lipid Profileon 09-30-2018 Cholesterol in HDL mass conc 45 mg/dL Normal >40 [facility] Comment on above: Result Comment: HDL Guidelines: <40 Undesirable 40-59 Borderline >59 Desirable Performed By: #### C DP, FT4, LIPR, TSH #### [facility] [address] [facility] [place] [address] Student Teaching Coordinator: Kojo Chiu MD Cholesterol in LDL mass conc 134 mg/dL High 0-130 [facility] Comment on above: Result Comment: LDL Guidelines: <100 Desirable 100-129 Near to/above Desirable 130-159 Borderline >159 Undesirable Direct (measured) LDL and calculated LDL are not interchangeable tests. Performed By: #### C DP, FT4, LIPR, TSH #### [facility] [address] [place] [place] [address] Student Teaching Coordinator: Kojo Chiu MD Cholesterol mass conc 205 mg/dL High <200 [facility] Comment on above: Result Comment: Cholesterol Guidelines: <200 Desirable 200-240 Borderline >240 Undesirable Performed By: #### C DP, FT4, LIPR, TSH #### [facility] [address] [facility] [place] [address] Student Teaching Coordinator: Kojo Chiu MD Cholesterol.total/Ch olesterol in HDL mass ratio 4.6 {ratio} Normal <5 [facility] Comment on above: Performed By: #### C DP, FT4, LIPR, TSH #### [facility] [address] [facility] [place] [address] Student Teaching Coordinator: Kojo Chiu MD Triglyceride mass conc 131 mg/dL Normal <150 [facility] Comment on above: Result Comment: Triglyceride Guidelines: <150 Desirable 150-199 Borderline 200-499 High >499 Very high Based on AHA Guidelines for fasting triglyceride, March 2012. Performed By: #### C DP, FT4, LIPR, TSH #### [facility] [address] [facility] [place] [address] Student Teaching Coordinator: Kojo Chiu MD Cholesterol in VLDL mass conc NOT REPORTED Normal 07-18 [facility] Comment on above: Performed By: #### C DP, FT4, LIPR, TSH #### [facility] [address] [place] [address] Student Teaching Coordinator: Kojo Chiu MD Thyroid Stim. Horm.on 2018 Thyrotropin Qn 0.04 m[IU]/L Low 0.30-5.00 [facility] Comment on above: Performed By: #### C DP, FT4, LIPR, TSH #### [facility] [address] [place] [address] Student Teaching Coordinator: Kojo Chiu MD Thyroxine, Freeon 09-30-2018 Thyroxine, Free 1.74 ng/dL High 0.93-1.70 [facility] Comment on above: Performed By: #### C DP, FT4, LIPR, TSH #### [facility] [address] [place] [place] [address] Student Teaching Coordinator: Kojo Chiu MD XR ELBOW LEFT (MIN [...] Lang Francis MD 09/30/18 Final result Normal [facility] APTTon 09-29-2018 aPTT Coag time (Bld) 27.4 s Normal 23.2-34.4 [facility] Comment on above: Performed By: #### C DP, TROPI, PTT, CMPX, SALI, PT #### [facility] [address] [place] [address] Dr. [place], [place] [address] Student Teaching Coordinator: Aryan Cleveland MD Acetaminophenon 09-29-2018 Acetaminophen mass conc <5 Low 10-30 [facility] Comment on above: Performed By: #### A LCB, ACET #### [address] [place], [facility]83 Student Teaching Coordinator: Aryan Cleveland MD CBC with Diffon 09-29-2018 Abs. Basophil 0.09 k/uL Normal 0.00-0.20 [facility] Comment on above: Performed By: #### C DP, TROPI, PTT, CMPX, SALI, PT #### [address] [place], [place] [address] Student Teaching Coordinator: Aryan Cleveland MD Abs.Imm.Granulocyte <0.03 Normal 0.00-0.30 [facility] Comment on above: Performed By: #### C DP, TROPI, PTT, CMPX, SALI, PT #### [facility] [address] [place] [address] Dr. [place], [place] [address] Student Teaching Coordinator: Aryan Cleveland MD Abs.Neutrophil (Seg) 5.50 k/uL Normal 1.50-8.10 [facility] Comment on above: Performed By: #### C DP, TROPI, PTT, CMPX, SALI, PT #### [address] [place], [facility]83 Student Teaching Coordinator: Aryan Cleveland MD Basophils/100 WBC (Bld) 1 % Normal 0-2 [facility] Comment on above: Performed By: #### C DP, TROPI, PTT, CMPX, SALI, PT #### [facility] [address] [place] [address] Dr. [place], [place] [address] Student Teaching Coordinator: Aryan Cleveland MD Eosinophils #/vol (Bld) 0.60 10*3/uL High 0.00-0.44 [facility] Comment on above: Performed By: #### C DP, TROPI, PTT, CMPX, SALI, PT #### [address] [place], [facility]83 Student Teaching Coordinator: Aryan Cleveland MD Eosinophils/100 WBC (Bld) 6 % High 1-4 [facility] Comment on above: Performed By: #### C DP, TROPI, PTT, CMPX, SALI, PT #### [address] [place], [facility]83 Student Teaching Coordinator: Aryan Cleveland MD Erythrocyte distribution width Ratio (RBC) 11.9 % Normal 11.8-14.4 [facility] Comment on above: Performed By: #### C DP, TROPI, PTT, CMPX, SALI, PT #### [address] [place], [facility]83 Student Teaching Coordinator: Aryan Cleveland MD Hematocrit Volume Fraction (Bld) 38.6 % Normal 36.3-47.1 [facility] Comment on above: Performed By: #### C DP, TROPI, PTT, CMPX, SALI, PT #### [address] [place], [facility]83 Student Teaching Coordinator: Aryan Cleveland MD Hemoglobin mass conc (Bld) 12.5 g/dL Normal 11.9-15.1 [facility] Comment on above: Performed By: #### C DP, TROPI, PTT, CMPX, SALI, PT #### [address] [place], [facility]83 Student Teaching Coordinator: Aryan Cleveland MD Immature granulocytes #/vol (Bld) 0 % Normal 0 [facility] Comment on above: Performed By: #### C DP, TROPI, PTT, CMPX, SALI, PT #### [facility] [address] [place], [place] [address] Student Teaching Coordinator: Aryan Cleveland MD Lymphocytes #/vol (Bld) 3.61 10*3/uL Normal 1.10-3.70 [facility] Comment on above: Performed By: #### C DP, TROPI, PTT, CMPX, SALI, PT #### [facility] [address] [place], [place] [address] Student Teaching Coordinator: Aryan Cleveland MD Lymphocytes/100 WBC (Bld) 34 % Normal 24-43 [facility] Comment on above: Performed By: #### C DP, TROPI, PTT, CMPX, SALI, PT #### [facility] [address] [place], [place] [address] Student Teaching Coordinator: Aryan Cleveland MD MCH Entitic mass (RBC) 29.7 pg Normal 25.2-33.5 [facility] Comment on above: Performed By: #### C DP, TROPI, PTT, CMPX, SALI, PT #### [address] [place], [facility]83 Student Teaching Coordinator: Aryan Cleveland MD MCHC mass conc (RBC) 32.4 g/dL Normal 28.4-34.8 [facility] Comment on above: Performed By: #### C DP, TROPI, PTT, CMPX, SALI, PT #### [facility] [address] [place], [facility]83 Student Teaching Coordinator: Aryan Cleveland MD MCV Entitic volume (RBC) 91.7 fL Normal 82.6-102.9 [facility] Comment on above: Performed By: #### C DP, TROPI, PTT, CMPX, SALI, PT #### [facility] [address] [place] [id number] Student Teaching Coordinator: Aryan Cleveland MD Monocytes #/vol (Bld) 0.85 10*3/uL Normal 0.10-1.20 [facility] Comment on above: Performed By: #### C DP, TROPI, PTT, CMPX, SALI, PT #### [facility] [address] [place] [id number] Student Teaching Coordinator: Aryan Cleveland MD Monocytes/100 WBC (Bld) 8 % Normal 3-12 [facility] Comment on above: Performed By: #### C DP, TROPI, PTT, CMPX, SALI, PT #### [facility] [address] [place] [id number] Student Teaching Coordinator: Aryan Cleveland MD Neutrophil (Seg) 51 % Normal 36-65 [facility] Comment on above: Performed By: #### C DP, TROPI, PTT, CMPX, SALI, PT #### [address] [place], [facility]83 Student Teaching Coordinator: Aryan Cleveland MD NRBC Automated 0.0 per 100 WBC Normal 0.0 [facility] Comment on above: Performed By: #### C DP, TROPI, PTT, CMPX, SALI, PT #### [address] [place] [id number] Student Teaching Coordinator: Aryan Cleveland MD Platelet mean volume Entitic volume (Bld) 10.6 fL Normal 8.1-13.5 [facility] Comment on above: Performed By: #### C DP, TROPI, PTT, CMPX, SALI, PT #### [address] [place] [id number] Student Teaching Coordinator: Aryan Cleveland MD Platelets #/vol (Bld) 314 10*3/uL Normal 138-453 [facility] Comment on above: Performed By: #### C DP, TROPI, PTT, CMPX, SALI, PT #### [facility] [address] [place] [address] [place] [address] Student Teaching Coordinator: Aryan Cleveland MD RBC #/vol (Bld) 4.21 10*6/uL Normal 3.95-5.11 [facility] Comment on above: Performed By: #### C DP, TROPI, PTT, CMPX, SALI, PT #### [address] [place] [address] Student Teaching Coordinator: Aryan Cleveland MD WBC #/vol (Bld) 10.7 10*3/uL Normal 3.5-11.3 [facility] Comment on above: Performed By: #### C DP, TROPI, PTT, CMPX, SALI, PT #### [address] [place], [facility]83 Student Teaching Coordinator: Aryan Cleveland MD Auto Diff Performed NOT REPORTED Normal [facility] Comment on above: Performed By: #### C DP, TROPI, PTT, CMPX, SALI, PT #### [address] [place], [facility]83 Student Teaching Coordinator: Aryan Cleveland MD Platelets #/vol (Bld) NOT REPORTED Normal [facility] Comment on above: Performed By: #### C DP, TROPI, PTT, CMPX, SALI, PT #### [address] [place], [facility]83 Student Teaching Coordinator: Aryan Cleveland MD RBC morphology finding Nom (Bld) NOT REPORTED Normal [facility] Comment on above: Performed By: #### C DP, TROPI, PTT, CMPX, SALI, PT #### [address] [place], [facility]83 Student Teaching Coordinator: Aryan Cleveland MD WBC Morphology NOT REPORTED Normal [facility] Comment on above: Performed By: #### C DP, TROPI, PTT, CMPX, SALI, PT #### [address] [place] [address] Student Teaching Coordinator: Aryan Cleveland MD Comp Metabolic Pr/rfx MGon 0 09-29-2018 (cont.) Normal [facility] Comment on above: Result Comment: Aver age GFR for 20-29 years old: 116 mL/min/1.73sq m Chronic Kidney Disease: <60 mL/min/1.73sq m Kidney failure: <15 mL/min/1.73sq m eGFR calculated using average adult body mass. Additional eGFR calculator available at: http://www.[employer]/multiple_crcl_2012.htm Performed By: #### C DP, TROPI, PTT, CMPX, SALI, PT #### [facility] [address] [place] [address] Student Teaching Coordinator: Aryan Cleveland MD Albumin mass conc 3.7 g/dL Normal 3.5-5.2 [facility] Comment on above: Performed By: #### C DP, TROPI, PTT, CMPX, SALI, PT #### [facility] [address] [place] [address] Student Teaching Coordinator: Aryan Cleveland MD Albumin/Globulin mass ratio 1.1 {ratio} Normal 1.0-2.5 [facility] Comment on above: Performed By: #### C DP, TROPI, PTT, CMPX, SALI, PT #### [facility] [address] [place] [address] Student Teaching Coordinator: Aryan Cleveland MD Alkaline Phos 57 U/L Normal 35-104 [facility] Comment on above: Performed By: #### C DP, TROPI, PTT, CMPX, SALI, PT #### [facility] [address] [place] [address] Student Teaching Coordinator: Aryan Cleveland MD ALT enzyme act/vol 22 U/L Normal 5-33 [facility] Comment on above: Performed By: #### C DP, TROPI, PTT, CMPX, SALI, PT #### [facility] [address] [place] [address] Student Teaching Coordinator: Aryan Cleveland MD Anion gap molar conc 12 mmol/L Normal 9-17 [facility] Comment on above: Performed By: #### C DP, TROPI, PTT, CMPX, SALI, PT #### [facility] [address] [place] [address] Student Teaching Coordinator: Aryan Cleveland MD AST enzyme act/vol 12 U/L Normal <32 [facility] Comment on above: Performed By: #### C DP, TROPI, PTT, CMPX, SALI, PT #### [facility] [address] [place] [address] Student Teaching Coordinator: Aryan Cleveland MD Bilirubin Ql (U) 0.36 mg/dL Normal 0.3-1.2 [facility] Comment on above: Performed By: #### C DP, TROPI, PTT, CMPX, SALI, PT #### [facility] [address] [place] [address] Student Teaching Coordinator: Aryan Cleveland MD BUN/CRE Ratio 11 Normal 9-20 [facility] Comment on above: Performed By: #### C DP, TROPI, PTT, CMPX, SALI, PT #### [address] [place] [address] Student Teaching Coordinator: Aryan Cleveland MD Calcium mass conc 9.0 mg/dL Normal 8.6-10.4 [facility] Comment on above: Performed By: #### C DP, TROPI, PTT, CMPX, SALI, PT #### [facility] [address] [place] [address] Student Teaching Coordinator: Aryan Cleveland MD Chloride molar conc 102 mmol/L Normal 98-107 [facility] Comment on above: Performed By: #### C DP, TROPI, PTT, CMPX, SALI, PT #### [facility] [address] [place], [place] [address] Student Teaching Coordinator: Aryan Cleveland MD CO2 molar conc 25 mmol/L Normal 20-31 [facility] Comment on above: Performed By: #### C DP, TROPI, PTT, CMPX, SALI, PT #### [facility] [address] [place], [place] [id number] Student Teaching Coordinator: Aryan Cleveland MD Creatinine mass conc 0.74 mg/dL Normal 0.50-0.90 [facility] Comment on above: Performed By: #### C DP, TROPI, PTT, CMPX, SALI, PT #### [facility] [address] [place], [place] [id number] Student Teaching Coordinator: Aryan Cleveland MD GFR, Amer >60 Normal >60 [facility] Comment on above: Performed By: #### C DP, TROPI, PTT, CMPX, SALI, PT #### [facility] [address] [place], [place] [id number] Student Teaching Coordinator: Aryan Cleveland MD GFR,non Amer >60 Normal >60 [facility] Comment on above: Performed By: #### C DP, TROPI, PTT, CMPX, SALI, PT #### [facility] [address] [place], [place] [id number] Student Teaching Coordinator: Aryan Clveeland MD Glucose mass conc 87 mg/dL Normal 70-99 [facility] Comment on above: Performed By: #### C DP, TROPI, PTT, CMPX, SALI, PT #### [facility] [address] [place], [place] [id number] Student Teaching Coordinator: Aryan Cleveland MD Potassium molar conc 3.7 mmol/L Normal 3.7-5.3 [facility] Comment on above: Performed By: #### C DP, TROPI, PTT, CMPX, SALI, PT #### [facility] [address] [place], [place] [id number] Student Teaching Coordinator: Aryan Cleveland MD Protein mass conc 7.0 g/dL Normal 6.4-8.3 [facility] Comment on above: Performed By: #### C DP, TROPI, PTT, CMPX, SALI, PT #### [facility] [address] [place] [address] Student Teaching Coordinator: Aryan Cleveland MD Sodium molar conc 139 mmol/L Normal 135-144 [facility] Comment on above: Performed By: #### C DP, TROPI, PTT, CMPX, SALI, PT #### [facility] [address] [place] [address] Student Teaching Coordinator: Aryan Cleveland MD Staging: Normal [facility] Comment on above: Result Comment: Stag e 1: Some kidney damage normal GFR Stage 2: Mild kidney damage GFR 60-89 Stage 3: Moderate kidney damage GFR 30-59 Stage 4: Severe kidney damage GFR 15-29 Stage 5: Severe kidney damage GFR <15 ESRD - chronic treatment by dialysis or transplant Performed By: #### C DP, TROPI, PTT, CMPX, SALI, PT #### [facility] [address] [place], [facility]83 Student Teaching Coordinator: Aryan Cleveland MD Urea nitrogen mass conc 8 mg/dL Normal 6-20 [facility] Comment on above: Performed By: #### C DP, TROPI, PTT, CMPX, SALI, PT #### [facility] [address] [place], [facility]83 Student Teaching Coordinator: Aryan Cleveland MD Drug Scr, Abuse, Uron 2018 Amphetamine(s),Ur Negative Normal NEG [facility] Comment on above: Performed By: #### C DP, TROPI, PTT, CMPX, SALI, PT #### [facility] [address] [place] [address] Student Teaching Coordinator: Aryan Cleveland MD Barbiturate(s),Ur Negative Normal NEG [facility] Comment on above: Performed By: #### C DP, TROPI, PTT, CMPX, SALI, PT #### [facility] [address] [place] [address] Student Teaching Coordinator: Aryan Cleveland MD Base excess Calculated molar conc (Bld) Negative Normal [facility] Comment on above: Performed By: #### C DP, TROPI, PTT, CMPX, SALI, PT #### [address] [place], [place] [address] Student Teaching Coordinator: Aryan Cleveland MD Benzodiazepine(s) Positive Abnormal NEG [facility] Comment on above: Performed By: #### C DP, TROPI, PTT, CMPX, SALI, PT #### [address] [place], [facility]83 Student Teaching Coordinator: Aryan Cleveland MD Buprenorphrine, Ur Negative Normal [facility] Comment on above: Performed By: #### C DP, TROPI, PTT, CMPX, SALI, PT #### [address] [place], [place] [address] Student Teaching Coordinator: Aryan Cleveland MD Cannabinoid(s),Ur Positive Abnormal NEG [facility] Comment on above: Performed By: #### C DP, TROPI, PTT, CMPX, SALI, PT #### [address] [place], [place] [address] Student Teaching Coordinator: Aryan Cleveland MD Methadone Ql (U) Negative Normal NEG [facility] Comment on above: Performed By: #### C DP, TROPI, PTT, CMPX, SALI, PT #### [address] [place], [facility]83 Student Teaching Coordinator: Aryan Cleveland MD Methamphetamine, Ur Negative Normal [facility] Comment on above: Performed By: #### C DP, TROPI, PTT, CMPX, SALI, PT #### [address] [place], [facility]83 Student Teaching Coordinator: Aryan Cleveland MD Opiate(s), Ur Negative Normal NEG [facility] Comment on above: Performed By: #### C DP, TROPI, PTT, CMPX, SALI, PT #### [facility] [address] [place], [place] [id number] Student Teaching Coordinator: Aryan Cleveland MD Oxycodone, Urine Negative Normal NEG [facility] Comment on above: Performed By: #### C DP, TROPI, PTT, CMPX, SALI, PT #### [address] [place], [place] [id number] Student Teaching Coordinator: Aryan Cleveland MD Phencyclidine, Ur Negative Normal NEG [facility] Comment on above: Performed By: #### C DP, TROPI, PTT, CMPX, SALI, PT #### [address] [place], [place] 7004183 Student Teaching Coordinator: Aryan Cleveland MD Protein mass conc (U) Negative [facility] Comment on above: Performed By: #### C DP, TROPI, PTT, CMPX, SALI, PT #### [address] [place], [place] [id number] Student Teaching Coordinator: Aryan Cleveland MD Tricyclic antidepressants Screen Ql (U) Negative [facility] Comment on above: Result Comment: Drug screen results are to be used for medical purposes only. All positive results are unconfirmed. Testing for employment or legal uses should be sent to a reference laboratory for confirmation. Performed By: #### C DP, TROPI, PTT, CMPX, SALI, PT #### [address] [place], [place] [id number] Student Teaching Coordinator: Aryan Cleveland MD Interpretive Info NOT REPORTED [facility] Comment on above: Performed By: #### C DP, TROPI, PTT, CMPX, SALI, PT #### [address] [place] [address] Student Teaching Coordinator: Aryan Cleveland MD MDMA, Urine NOT REPORTED Normal NEG [facility] Comment on above: Performed By: #### C DP, TROPI, PTT, CMPX, SALI, PT #### [facility] [address] [place], [place] [id number] Student Teaching Coordinator: Aryan Cleveland MD Ethanol Alcoholon 09-29-2018 Ethanol mass conc mg/dL Normal <10 [facility] Comment on above: Performed By: #### A LCB, ACET #### [facility] [address] [place] [id number] Student Teaching Coordinator: Aryan Cleveland MD Ethanol percent <0.010 Normal <0.010 [facility] Comment on above: Result Comment: NOTE : NEW REFERENCE RANGE Performed By: #### A LCB, ACET #### [facility] [address] [place], [place] [phone] Student Teaching Coordinator: Aryan Cleveland MD HCG, ,Urineon 09-29 HCG.beta subunit ( test) Ql (U) Negative Normal NEG [facility] Comment on above: Result Comment: Spec imens with hCG levels near the threshold of the test (25 mIU/mL) may give a negative or indeterminate result. In such cases, another test should be performed with a new specimen in 48-72 hours. If early is suspected clinically in this setting, correlation with quantitative serum b-hCG level is suggested. [facility] has confirmed the use of plasma for this test. This has not been cleared or approved by the U.S. Food and Drug Administration. The FDA has determined that such clearance is not necessary. Performed By: #### U A, RIVAS, UHCG #### [facility] [address] [place] [address] Student Teaching Coordinator: Aryan Cleveland MD PTon 09-29-2018 INR Coag RelTime (PPP) 1.0 {INR} Normal 0.9-1.2 [facility] Comment on above: Performed By: #### C DP, TROPI, PTT, CMPX, SALI, PT #### [facility] [address] [place], [place] 0335483 Student Teaching Coordinator: Aryan Cleveland MD Prothrombin time (PT) Coag time (PPP) 10.5 s Normal 9.7-12.2 [facility] Comment on above: Performed By: #### C DP, TROPI, PTT, CMPX, SALI, PT #### [facility] [address] [place], [facility]83 Student Teaching Coordinator: Aryan Cleveland MD Salicylateon 09-29-2018 Salicylate <1 Low 3-10 [facility] Comment on above: Performed By: #### C DP, TROPI, PTT, CMPX, SALI, PT #### [facility] [address] [place], [facility]83 Student Teaching Coordinator: Aryan Cleveland MD Thyroid Stim. Horm.on 2018 Thyrotropin Qn 0.04 m[IU]/L Low 0.30-5.00 [facility] Comment on above: Performed By: #### T SH #### [facility] [address] [place], [facility]83 Student Teaching Coordinator: Aryan Cleveland MD Troponinon 09-29-2018 Troponin I.cardiac mass conc ng/mL Normal <0.03 [facility] Comment on above: Result Comment: Trop onin T results cannot be compared to Troponin-I results. Performed By: #### C DP, TROPI, PTT, CMPX, SALI, PT #### [facility] [address] [place], [place] 117[address]83 Student Teaching Coordinator: Aryan Cleveland MD Troponin I.cardiac mass conc Normal [facility] Comment on above: Result Comment: Refe [...] DP, TROPI, PTT, CMPX, SALI, PT #### [facility] [address] [place] [address] Student Teaching Coordinator: Aryan Cleveland MD Troponin I.cardiac mass conc NOT REPORTED Normal 0-14 [facility] Comment on above: Performed By: #### C DP, TROPI, PTT, CMPX, SALI, PT #### [facility] [address] [place] [address] Student Teaching Coordinator: Aryan Cleveland MD Urinalysis, Routineon 2018 Acetoacetic Acid,Ur Negative Normal [facility] Comment on above: Performed By: #### C DP, TROPI, PTT, CMPX, SALI, PT #### [address] [place] [address] Student Teaching Coordinator: Aryan Cleveland MD Bilirubin, SemiQt,Ur Negative Normal [facility] Comment on above: Performed By: #### C DP, TROPI, PTT, CMPX, SALI, PT #### [address] [place] [address] Student Teaching Coordinator: Aryan Cleveland MD Color Nom (U) YELLOW Normal [facility] Comment on above: Performed By: #### C DP, TROPI, PTT, CMPX, SALI, PT #### [facility] [address] [place] [address] Student Teaching Coordinator: Aryan Cleveland MD Glucose,Semi-qnt,Ur Negative Normal [facility] Comment on above: Performed By: #### C DP, TROPI, PTT, CMPX, SALI, PT #### [address] [place], [place] [address] Student Teaching Coordinator: Aryan Cleveland MD Hemoglobin, Ur Negative Normal [facility] Comment on above: Performed By: #### C DP, TROPI, PTT, CMPX, SALI, PT #### [facility] [address] [place], [place] [address] Student Teaching Coordinator: Aryan Cleveland MD Leuckocyte Esterase Negative Normal NEG [facility] Comment on above: Performed By: #### C DP, TROPI, PTT, CMPX, SALI, PT #### [address] [place], [place] [address] Student Teaching Coordinator: Aryan Cleveland MD Nitrite,Ur Negative Normal NEG [facility] Comment on above: Performed By: #### C DP, TROPI, PTT, CMPX, SALI, PT #### [address] [place], [place] [address] Student Teaching Coordinator: Aryan Cleveland MD PH,Ur 6.5 Normal 5.0-9.0 [facility] Comment on above: Performed By: #### C DP, TROPI, PTT, CMPX, SALI, PT #### [address] [place], [place] [address] Student Teaching Coordinator: Aryan Cleveland MD Protein mass conc (U) Negative Normal NEG [facility] Comment on above: Performed By: #### C DP, TROPI, PTT, CMPX, SALI, PT #### [address] [place], [place] [address] Student Teaching Coordinator: Aryan Cleveland MD Spec. [place],Ur 1.010 Normal 1.010-1.020 [facility] Comment on above: Performed By: #### C DP, TROPI, PTT, CMPX, SALI, PT #### [address] [place], [facility]83 Student Teaching Coordinator: Aryan Cleveland MD Turbidity CLEAR Normal CLEAR [facility] Comment on above: Performed By: #### C DP, TROPI, PTT, CMPX, SALI, PT #### [address] [place], [place] [id number] Student Teaching Coordinator: Aryan Cleveland MD Urobilinogen,Ur Normal Normal NORM [facility] Comment on above: Performed By: #### C DP, TROPI, PTT, CMPX, SALI, PT #### [facility] [address] [place] [address] Student Teaching Coordinator: Aryan Cleveland MD Comment NOT REPORTED Normal [facility] Comment on above: Performed By: #### C DP, TROPI, PTT, CMPX, SALI, PT #### [facility] [address] [place] [address] Student Teaching Coordinator: Aryan Cleveland MD ED Clinical Summaryon 2018 ED Clinical Summary [address] [address] ED Clinical Summary Person Information Name: Lana Carrillo [facility] Age: 28 Years : 1990 Sex: Female PCP: Malou MCBRIDE, Xochilt Coronel Marital Status: Race: White Ethnicity: Not or Language: Ukrainian Visit Reason: Ear pain; Ear drainage Acuity: 5 Enc Type: Emergency Med Service: Emergency Medicine Arrival: 09/10/2018 18:52:00 Discharge: 09/10/2018 19:20:00 LOS: 000 00:28 Checkin: 09/10/2018 18:52:00 Checkout: 09/10/2018 19:20:00 Dispo Type: Home or Self Care Address: [address] [place] [address] Provider Notes: Diagnosis: 1:Right otitis media; 2:Right [...] Med List: New Medications [facility], [address], [place] [id number], [phone] ciprofloxacin-dexameth asone otic (Ciprodex 0.3%-0.1% otic suspension) [...] day. Last Dose: ___ [facility] [facility], [address], [place] [id number], [phone] ciprofloxacin-dexameth asone otic (Ciprodex 0.3%-0.1% otic suspension) [...] other concerns With: Address: When: Xochilt Westfall [address] [place] [address], [address] [place] [phone] Business (1) Discharge Orders: Discharge Patient 09/10/18 19:12:00 EDT, Discharge to Home, Self Patient Education Information: EXTERNAL EAR INFECTION (Adult); OTITIS MEDIA, Abx Tx (Adult) [facility] Poison Help line: . [facility] Hotline: [place] Tobacco Quit Line: [place], [place]) [address]: [phone] [place], [place]) [address]: [phone] [facility] [address] [facility]. [place], [place]: [phone] [facility] ED Note-Physicianon 09-11-19 19 ED Note-Physician Chief [...] no accessory muscle use, no stridor] Skin: [[place], warm, dry, no injury, no rashes] Neuro: [...] mL, 0 Refill(s), 09/17/18 19:10:00 EDT, Pharmacy: [facility] doxycycline, 100 mg, Oral, Tab, Once, First Dose: 09/10/18 19:08:00 EDT, Stop Date: 09/10/18 19:08:00 EDT, STAT, Dispense From Location: [facility], Otitis media doxycycline, 1 caps, Oral, BID, X 10 days, # 20 caps, 0 Refill(s), 09/20/18 19:10:00 EDT, Pharmacy: [facility]. Discharge Patient Problem List/Past Medical History Ongoing [...] Jaime Logan PA-C 09/10/18 19:[address] [facility] Ambulatory Patient Education on 07-25-2018 Ambulatory Patient Education Patient Education Materials Name: Lana Carrillo Current Date: 07/25/2018 15:33:58 [facility] : 1990 The following sheet(s) are [...] Rest the jaw by avoiding crunchy or oldb-xk-aklm foods. Don't eat hard or sticky candies. [...] as directed by your healthcare provider ? [phone] [employer]. [address] [place] [address]. All rights reserved. This information is not intended as a substitute for professional medical care. Always follow your healthcare professional's instructions. Normal [facility] Otolaryngology Office/Clinic Noteon 07-25-2018 Otolaryngology Office/Clinic Note [...] TMJ arthralgia Plan: I'm giving the patient [place]. She apparently had some itching with the [...] tablet, 200 mcg, 1 tabs, Oral, Daily [place] 5 mg-325 mg oral tablet, 1 tabs, Oral, q4hr, PRN Allergies amoxicillin (Swelling) codeine (Swelling) Social History Alcohol Never Tobacco Never (less than 100 in lifetime) Use:. Family History Patient was adopted Diagnostic Results No qualifying data available. No qualifying data available. No qualifying data available. No qualifying data available. Electronically signed by Beulah Yarbrough MD 07/25/18 15:[address] [facility] Otolaryngology Consultationo n 03-16-2018 Otolaryngology Consultation Chief [...] Beulah Yarbrough MD 03/27/2018 14:[address] [facility] Vital Signs Date Time Vital Sign Value Performing Clinician Facility 07-11-2023 11:45-0500 Body height 165.1 cm Kita Vargas Other [facility] Other 07-11-2023 11:45-0500 Body mass index (BMI) [Ratio] 39.93 kg/m2 Kita Vargas [facility] Other 07-11-2023 11:45-0500 Body weight 108.86 kg Kita Vargas Other [facility] Other 07-11-2023 11:45-0500 Diastolic blood pressure 82 mm[Hg] Kita Vargas Other [facility] Other 07-11-2023 11:45-0500 Systolic blood pressure 128 mm[Hg] Kita Vargas Other [facility] Other Encounters Encounter Date Encounter Type Care Provider Facility Start: 07-11-2023 End: 07-11-2023 ambulatory Kita Vargas Other [facility] Other Start: 07-11-2023 Office outpatient vi sit 15 minutes Kita Vargas [facility] Start: 08-06-2021 Gynecological examination normal Kita Vargas Other [facility] Other Start: 11-10-2020 End: 11-11-[address] REBECCA JONES Facility:[facility] Start: 05-06-2020 End: 05-07-[address] KITA VARGAS Facility:[facility] Start: 04-25-[address] KITA VARGAS Facil ity:[facility] Start: 09-29-2018 End: 10-05-2018 Evaluation and management of inpatient [facility] Start: 09-28-2018 End: 09-29-2018 Emergency department patient visit [facility] Start: 09-10-2018 End: 09-10-2018 Emergency department patient visit Xochilt Westfall Facility:[facility] Start: 07-25-2018 End: 07-26-2018 Patient encounter procedure BEULAH YARBROUGH Facility:[facility] Start: 04-09-2018 Patient encounter procedure Madiha Barreto Facility:[facility] Start: 03-16-2018 End: 03-17-2018 Patient encounter procedure BEULAH YARBROUGH Facility:[facility] Procedures Date Procedure Procedure Detail Performing Clinician Start: 10-04-2018 DISCHARGE PATIENT DIMA CHRISTIAN Start: 09-30-2018 Radex elbow complete minimum 3 views [facility] Start: 09-30-2018 Assay of free thyroxine [facility] Start: 09-30-2018 Assay of thyroid stimulating hormone t[facility] Start: 09-30-2018 Blood count complete auto&auto difrntl wbc [facility] Start: 09-30-2018 Lipid panel ERWIN [facility] Start: 09-29-2018 IP CONSULT TO OCCUPATIONAL THERAPY SPECIALIST AL MEDICINE BALDOMER[facility]AUR[facility]A [facility] Start: 09-29-2018 [facility] Start: 09-29-2018 FULL CODE ERWIN [facility] Start: 09-29-2018 IP CONSULT TO HOSPITALIST [facility] Start: 09-29-2018 MONITOR [facility] Start: 09-29-2018 PATIENT STATUS (DIRECT) [facility]WIN [facility] Start: 09-29-2018 TOBACCO CESSATION EDUCATION [facility] Start: 09-29-2018 VITAL SIGNS [facility] Start: 09-29-2018 Drug screen class list a [...] Payer Category Payer Private Health Insurance [id number] 2014 Unknown [id number] 1999 Private Health Insurance 1990 Unknown [id number] 2.16.8 [id number] 1990 Unknown [id number] 2.16.8 [id number] 1990 Unknown [id number] 2.16.8 [id number] 1990 Unknown [id number] 2.16.8 [id number] 1990 Unknown [id number] 2.16.8 [id number] 1990 Unknown [id number] 2.16.8 [id number] 1990 Unknown [id number] 2.16.84 [id number] 1990 Unknown [id number] 2.16.84 [id number] 1990 Unknown [id number] 2.16.84 [id number] 1959 Self-pay [id number] 1959 Unknown [id number] Medicaid [id number] 2. [id number] Social History Date Type Detail Facility Sex Assigned At [facility] Other Evaluation note 07-11-2023 Note Date & [...] Jun, Adult ADHD (ICD-10 - F90.9) start [employer] [place] [employer] Other History general Narrative - Reported Note [...] : Active, Surgical History curtis gtz 2020 Quarterly Other Summary Purpose Family History No Family History Records FoundNo Family History Records FoundNo Family History Records FoundNo Family History Records FoundNo Family History Records Found Advance Directives No Advanced Directives Records FoundNo Advanced Directives Records FoundNo Advanced Directives Records FoundNo Advanced Directives Records FoundNo Advanced Directives Records Found Additional Source Comments INFORMATION SOURCE (unrecogn ized section and content) DATE CREATED AUTHOR 09/12/2018 [facility] DATE CREATED AUTHOR AUTHOR'S ORGANIZ ATION 09/30/2018 [facility] DATE CREATED AUTHOR AUTHOR'S ORGANIZ ATION 10/05/2018 [facility] DATE CREATED AUTHOR AUTHOR'S ORGANIZ ATION 11/14/2020 [facility] DATE CREATED AUTHOR AUTHOR'S ORGANIZ ATION 09/23/2021 [facility] REASON FOR VISIT (unrecogniz ed section [...] BE BASED ON THE PRIMARY CLINICAL RECORDS. [employer] [facility]. provides no warranty or guarantee of the accuracy or completeness of information in this document.
[2024-08-26 11:11] LABS: Age Gdln ACOG Testing Note (.); HPV Aptima Negative (Negative); IGP, Aptima HPV, rfx 16/18,45 Note (.)
== END 2024-08-20 18:41 | disposition home or self-care (01) ==
LOC: LAB 18:40
PROVIDERS: PCP Family Medicine; Visit Provider Obstetrics & Gynecology
DX: Z01.419 Encounter for gynecological examination (general) (routine) without abnormal findings (principal)
CPT/HCPCS: 87624; 88175